=== PATIENT | male | born 1950 | race Asian ===

== ENCOUNTER 2022-03-30 07:16 | Inpatient (IN) | payer MEDICARE ==
--- NOTE | 2022-03-30 08:17 | Emergency Department Report ---
HPI - General Chief Complaint: Urogenital-Male Time Seen by Provider: 03/30/22 07:52 - HPI HPI: Room 24 Patient is a 71-year-old male presenting with a chief complaint of urinary retention. states the patient has not urinated since 3 PM yesterday. Patient states he does have the urge to urinate but is unable to. The states the patient has had bilateral lower extremity edema over the past week and a half. She states the patient's physician had some blood work drawn to check his kidney function last week but states there were no abnormalities noted. The patient was placed on Augmentin for UTI which she finished yesterday. ED Past Medical Hx - Past Medical History Hx Hypertension: Yes Hx Congestive Heart Failure: Yes Hx Diabetes: Yes Hx Psychiatric Treatment: Yes (DEPRESSION) Additional medical history: GOUT. ENLARGED PROSTATE. HYPOTHYROID. HLD - Surgical History Additional Surgical History: Left knee surgery, carpal tunnel surgery, penile surgery - Family History Family history: no significant - Social History Smoking Status: Former Smoker (None x3 years) Substance Use Type: Alcohol (Occasional) ED Review of Systems ROS: Stated complaint: URINARY RETENTION Other details as noted in HPI Constitutional: no symptoms reported Eyes: denies: eye pain ENT: denies: throat pain Cardiovascular: denies: chest pain Endocrine: no symptoms reported Gastrointestinal: denies: abdominal pain Genitourinary: other (Unable to urinate) Musculoskeletal: back pain (Chronic) Neurological: denies: headache Physical Exam - Physical Exam Vital Signs: Vital Signs 03/30/22 07:20 Temperature 97.9 F Pulse Rate 72 Respiratory 18 Rate Blood Pressure 122/62 [Left] O2 Sat by Pulse 98 Oximetry Physical Exam: GENERAL: The patient is well-developed well-nourished male lying on stretcher not appearing to be in acute distress. [] HEENT: Normocephalic. Atraumatic. Extraocular motions are intact. Patient has moist mucous membranes. NECK: Supple. Trachea midline CHEST/LUNGS: Clear to auscultation. There is no respiratory distress noted. HEART/CARDIOVASCULAR: Regular. There is no tachycardia. There is no gallop rub or murmur. ABDOMEN: Abdomen is soft, nontender. Patient has normal bowel sounds. There is no abdominal distention. SKIN: There is no rash. There is trace to 1+ bilateral lower extremity pitting edema. There is no diaphoresis. NEURO: The patient is awake, alert, and oriented. The patient is cooperative. The patient has no focal neurologic deficits. The patient has normal speech. GCS 15 MUSCULOSKELETAL: There is no evidence of acute injury. ED Course Vital Signs 03/30/22 07:20 Temperature 97.9 F Pulse Rate 72 Respiratory 18 Rate Blood Pressure 122/62 [Left] O2 Sat by Pulse 98 Oximetry - Consultations Consultation #1: 03/30/22 10:42 Patient's structures engineer called 03/30/22 11:21 Spoke with patient's structures engineer (Dr. Aby Chung [phone]) states patient's last creatinine was 2.2 on 03/21/2022 and this is his baseline ED Medical Decision Making - Lab Data Result diagrams: 03/30/22 08:15 03/30/22 08:15 Laboratory Tests 03/30/22 03/30/22 03/30/22 08:15 08:15 Unknown WBC 14.4 H RBC 3.60 L Hgb 10.5 L Hct 32.1 L MCV 89 MCH 29 MCHC 33 RDW 19.8 H Plt Count 167 Lymph % (Auto) 18.6 [place] % (Auto) 8.2 H Eos % (Auto) 3.0 Baso % (Auto) 0.5 Lymph # (Auto) 2.7 [place] # (Auto) 1.2 H Eos # (Auto) 0.4 Baso # (Auto) 0.1 Seg Neutrophils % 69.7 Seg Neutrophils # 10.1 H Sodium 139 Potassium 3.9 Chloride 98.1 Carbon Dioxide 27 Anion Gap 18 BUN 55 H Creatinine 4.2 H Estimated GFR 14 BUN/Creatinine Ratio 13 Glucose 132 H Calcium 7.9 L Total Bilirubin 0.60 AST 26 ALT 17 Alkaline Phosphatase 103 NT-Pro-B Natriuret Pep 1383 H Total Protein 6.1 L Albumin 3.9 Albumin/Globulin Ratio 1.8 Urine Color Yellow Urine Turbidity Slightly-cloudy Urine pH 5.0 Ur Specific [place] 1.014 Urine Protein 30 mg/dl Urine Glucose (UA) Neg Urine Ketones Neg Urine Blood Neg Urine Nitrite Neg Urine Bilirubin Neg Urine Urobilinogen 2.0 Ur Leukocyte Esterase Tr Urine WBC (Auto) 4.0 Urine RBC (Auto) 2.0 U Epithel Cells (Auto) 2.0 Amorphous Crystals Few Urine Mucus Few - Radiology Data Radiology results: report reviewed (Chest x-ray), image reviewed (Chest x-ray) interpreted by me: Chest x-ray-CHF. No pneumothorax [facility] [address] [place] [address] XRay Report Signed Patient: JACKY LYONS MR#: [id number] : 1950 Acct:[id number] Age/Sex: 71 / M ADM Date: 03/30/22 Loc: ED Attending Dr: Ordering Physician: ROJELIO LOCKE MD Date of Service: 03/30/22 Procedure(s): XR chest 1V ap Accession Number(s): [id number] cc: ROJELIO LOCKE MD Fluoro Time In Minutes: CHEST 1 VIEW 03/30/2022 8:35 AM INDICATION / CLINICAL INFORMATION: Fluid retention. COMPARISON: None available. FINDINGS: SUPPORT DEVICES: None. HEART / MEDIASTINUM: Cardiomegaly LUNGS / PLEURA: Bilateral pulmonary edema or infiltrates is present. Small bilateral pleural effusions. No pneumothorax. ADDITIONAL FINDINGS: No significant additional findings. IMPRESSION: 1. Probable CHF/volume overload. If fever is present, bilateral infiltrates could be considered. Signer Name: Dyllan Velasquez Jr, MD Signed: 03/30/2022 9:38 AM Workstation Name: [id number] Transcribed By: TTR Dictated By: DYLLAN VELASQUEZ JR, MD Electronically Authenticated By: DYLLAN VELASQUEZ JR, MD Signed Date/Time: 03/30/22937 DD/ 7 TD/TT: - Differential Diagnosis Urinary retention, acute renal failure, CHF, hypoalbuminemia Critical care attestation.: If time is entered above; I have spent that time in minutes in the direct care of this critically ill patient, excluding procedure time. ED Disposition Clinical Impression: CHF (congestive heart failure), Acute on chronic renal failure, Hypoxia, Urinary retention Disposition: ADMITTED INPATIENT Is pt being admited?: Yes Does the pt Need Aspirin: No Condition: Fair Referrals: PILLO JIANG MD [Primary Care Provider] - 3-5 Days Time of Disposition: 11:23 (Care transferred to hospitalist (Dr. Prakash))
[2022-03-30 08:47] LABS: Basophils # (Auto) 0.1 K/mm3 (0.0-0.1); Basophils % (Auto) 0.5 % (0.0-1.8); Eosinophils # (Auto) 0.4 K/mm3 (0.0-0.4); Hematocrit 32.1 % (35.5-45.6); Hemoglobin 10.5 gm/dl (11.8-15.2); Lymphocytes # (Auto) 2.7 K/mm3 (1.2-5.4); Lymphocytes % (Auto) 18.6 % (13.4-35.0); Mean Corpuscular HGB Conc 33 % (32-34); Mean Corpuscular Volume 89 fl (84-94); Monocytes # (Auto) 1.2 K/mm3 (0.0-0.8); Monocytes % (Auto) 8.2 % (0.0-7.3); Platelet Count 167 K/mm3 (140-440); Red Cell Distribution Width 19.8 % (13.2-15.2)
[2022-03-30 09:02] LABS: Albumin 3.9 g/dL (3.9-5); Calcium 7.9 mg/dL (8.4-10.2)
--- NOTE | 2022-03-30 09:43 | XRay Report ---
CHEST 1 VIEW 03/30/2022 8:35 AM INDICATION / CLINICAL INFORMATION: Fluid retention. COMPARISON: None available. FINDINGS: SUPPORT DEVICES: None. HEART / MEDIASTINUM: Cardiomegaly LUNGS / PLEURA: Bilateral pulmonary edema or infiltrates is present. Small bilateral pleural effusion s. No pneumothorax. ADDITIONAL FINDINGS: No significant additional findings. IMPRESSION: 1. Probable CHF/volume overload. If fever is present, bilateral infiltrates could be considered. Signer Name: Dyllan Velasquez Jr, MD Signed: 03/30/2022 9:38 AM Workstation Name: [id number]
[2022-03-30 10:01] LABS: Bilirubin,Urine NEG (Negative); Blood,Urine NEG (Negative); Color,Urine Yellow (Yellow)
[2022-03-30 10:25] LABS: Amorphous Crystals,Urine Few; Mucus,Urine FEW /HPF
--- NOTE | 2022-03-30 11:55 | History and Physical Report ---
History of Present Illness Chief complaint: He is weak and not moving around as much History of present illness: 71 YO Male with HTN, DM, Obesity Hypoventilation Syndrome, Vascular Dementia, Cerebral Atherosclerosis, BPH, Chronic Pain Syndrome, OA, HLD presents ED for evaluation. Patient is confused and lethargic the time of evaluation is provide history. Patient history provided by EMS staff, ED staff, as well as the patient was at bedside during exam and interview. As per the patient experienced increased weakness over the past 3 weeks with concomitant worsening lower extremity edema, decreased exercise tolerance, orthopnea, paroxysmal nocturnal dyspnea, dyspnea on exertion, dyspnea at rest, as well as subjective weight gain over the past 3 weeks. Patient was found to have increased lethargy today. EMS notified and upon arrival the patient was found to be in distress and subsequent transported to [facility] for further care and evaluation of the aforementioned symptoms. The patient was seen and evaluated in the emergency department. All lab and imaging studies reviewed. The patient was found to have a pulse oximetry of 89% on room air which is consistent with acute hypoxemic respiratory failure. The patient was placed on supplemental oxygen with mild improvement in symptoms and was subsequently placed on noninvasive positive pressure ventilation. Patient also found to have bilateral pneumonia complicated by sepsis, MATILDA with ATN, cardiorenal syndrome, as well as clinical symptoms consistent with new onset CHF decompensation. Patient admitted to IMCU due to increased risk of worsening symptoms and for medical stabilization. Cardiology team consulted in ED. nephrology team consulted in ED. Patient is lethargic with diminished cognition but has a positive gag reflex and is able to protect his airway at the time my evaluation. No prior admission for review. No medication listed at time of admission for reconciliation. Advanced care planning conducted in ED. Past History Past Medical History: arthritis, diabetes, hypertension, hyperlipidemia, other (See HPI) Past Surgical History: Other (Left knee, carpal tunnel, penile surgery) Social history: , lives with family. denies: smoking, prescription drug abuse Family history: diabetes, hypertension Medications and Allergies Allergies Allergy/AdvReac Type Severity Reaction Status Date / Time No Known Allergies Allergy Verified 03/30/22 07:22 Home Medications Medication Instructions Recorded Confirmed Last Taken Type AtorvaSTATin 03/30/22 Unknown History AtorvaSTATin [Lipitor] 10 mg PO QHS 03/30/22 03/30/22 Unknown History Dulaglutide [Trulicity] QWEEK 03/30/22 Unknown History Finasteride 5 mg PO DAILY 03/30/22 03/30/22 Unknown History Furosemide 20 mg PO DAILY 03/30/22 03/30/22 Unknown History Insulin Aspart (Nf) [NovoLOG 100 03/30/22 Unknown History UNITS/ML VIAL] Levothyroxine 0.125 mg PO BID 03/30/22 03/30/22 Unknown History Lyrica 200 mg PO BID 03/30/22 03/30/22 Unknown History Potassium 03/30/22 Unknown History Potassium Chloride [K-Dur] 20 meq PO BID 03/30/22 03/30/22 Unknown History Tamsulosin 0.4 mg PO DAILY 03/30/22 03/30/22 Unknown History Tresiba 03/30/22 Unknown History Trimethoprim 100 mg PO HS 03/30/22 03/30/22 Unknown History Trulicity 03/30/22 Unknown History allopurinoL 100 mg PO BID 03/30/22 03/30/22 Unknown History amLODIPine 5 mg PO DAILY 03/30/22 03/30/22 Unknown History carvediloL 03/30/22 Unknown History carvediloL [Coreg] 6.25 mg PO BID 03/30/22 03/30/22 Unknown History cephALEXin 250 mg PO DAILY 03/30/22 03/30/22 Unknown History metFORMIN 500 mg PO BID 03/30/22 03/30/22 Unknown History Review of Systems Constitutional: weight loss, fever, chills, weakness, malaise, no weight gain Ears, nose, mouth and throat: no ear pain, no ear discharge, no tinnitis, no decreased hearing, no nasal congestion Cardiovascular: orthopnea, shortness of breath, dyspnea on exertion, paroxysmal nocturnal dyspnea, high blood pressure, leg edema, decreased exercise tolerance, no chest pain Respiratory: no cough, no cough with sputum Gastrointestinal: no abdominal pain, no nausea, no vomiting Genitourinary Male: no hematuria, no flank pain, no discharge, no urinary frequency, no urinary hesitancy Rectal: no pain, no incontinence, no bleeding Musculoskeletal: no neck stiffness, no arm numbness/tingling, no low back pain, no shooting leg pain Integumentary: no rash, no pruritis, no wounds, no jaundice Neurological: no head injury, no transient paralysis, no weakness, no numbness, no tingling, no syncope Psychiatric: no anxiety, no memory loss, no sleep disturbances, no insomnia, no hypersomnia, no change in appetite, no suicidal ideation Endocrine: no cold intolerance, no polyphagia, no polydipsia, no nocturia, no excessive sweating, no flushing Hematologic/Lymphatic: no easy bruising, no easy bleeding Allergic/Immunologic: no urticaria, no allergic rhinitis, no wheezing Exam - Constitutional Vitals: Temp Pulse Resp BP Pulse Ox 97.9 F 72 18 122/62 98 03/30/22 07:20 03/30/22 07:20 03/30/22 07:20 03/30/22 07:20 03/30/22 07:20 General appearance: Present: mild distress, obese - EENT Eyes: Present: PERRL ENT: hearing intact, clear oral mucosa, hearing decreased - Neck Neck: Present: supple, normal ROM, masses or JVD - Respiratory Respiratory effort: labored Respiratory: bilateral: diminished - Cardiovascular Heart Sounds: Present: S1 & S2. Absent: rub, click - Extremities Extremity abnormal: edema Peripheral Pulses: within normal limits - Abdominal General gastrointestinal: Present: soft, non-tender, non-distended, normal bowel sounds Male genitourinary: Present: normal - Integumentary Integumentary: Present: clear, warm, dry - Musculoskeletal Musculoskeletal: generalized weakness - Psychiatric Psychiatric: no appropriate mood/affect, no intact judgment & insight, no memory intact - Neurologic Neurologic: CNII-XII intact, no focal deficits, moves all extremities, no gait normal Results - Labs CBC & Chem 7: 03/30/22 08:15 03/30/22 08:15 Labs: Abnormal lab results 03/30/22 03/30/22 Range/Units 08:15 08:15 WBC 14.4 H (4.5-11.0) K/mm3 RBC 3.60 L (3.65-5.03) M/mm3 Hgb 10.5 L (11.8-15.2) gm/dl Hct 32.1 L (35.5-45.6) % RDW 19.8 H (13.2-15.2) % [place] % (Auto) 8.2 H (0.0-7.3) % [place] # (Auto) 1.2 H (0.0-0.8) K/mm3 Seg Neutrophils # 10.1 H (1.8-7.7) K/mm3 BUN 55 H (9-20) mg/dL Creatinine 4.2 H (0.8-1.3) mg/dL Glucose 132 H (75-100) mg/dL Calcium 7.9 L (8.4-10.2) mg/dL NT-Pro-B Natriuret Pep 1383 H (0-900) pg/mL Total Protein 6.1 L (6.3-8.2) g/dL Assessment and Plan - Patient Problems (1) Sepsis Current Visit: Yes Status: Acute Qualifiers: Severe sepsis acute organ dysfunction type: acute respiratory failure Plan to address problem: Sepsis protocol: Strict I's/O, monitoring output every shift, daily weight, monitor fluid balance, IV fluid resuscitation therapy as clinically indicated, IV antibiotic therapy, chest x-ray, urinalysis, serial lactic acid level, maintain mean arterial pressure greater than equal 65, blood culture, (2) Bilateral pneumonia Current Visit: Yes Status: Acute Plan to address problem: Pneumonia protocol: Chest x-ray, supplemental oxygen, pulse oximetry, IV antibiotic therapy, blood culture. Pulmonary toilet, (3) Acute hypoxemic respiratory failure Current Visit: Yes Status: Acute Plan to address problem: Chest x-ray, supplemental oxygen, pulse oximetry, nebulizer therapy, pulmonary toilet, noninvasive positive pressure ventilation as clinically indicated, arterial blood gas. (4) New onset of congestive heart failure Current Visit: Yes Status: Acute Plan to address problem: Strict I's/O, Q shift, daily weight, afterload reduction, blood pressure control, diuresis, cardiology team consulted, thyroid panel, magnesium level, echocardiogram ordered and pending at time of admission. (5) Acute kidney injury (MATILDA) with acute tubular necrosis (ATN) Current Visit: Yes Status: Acute Plan to address problem: BMP, monitor fluid balance, repeat BMP in a.m., urine electrolytes, renal ultrasound, nephrology team consulted. (6) Cardiorenal syndrome Current Visit: Yes Status: Acute Qualifiers: Heart failure presence: with heart failure Plan to address problem: Nephrology team consulted, monitor fluid balance, BMP, repeat BMP in a.m. to monitor serum creatinine as well as GFR, urine electrolytes. (7) Obesity hypoventilation syndrome Current Visit: Yes Status: Acute Plan to address problem: Balanced diet, increase physical activity discharge, outpatient pulmonary follow-up for sleep study. (8) Vascular dementia Current Visit: Yes Status: Acute Qualifiers: Dementia behavioral disturbance: without behavioral disturbance Qualified Code(s): F01.50 - Vascular dementia without behavioral disturbance Plan to address problem: Verbal prompting, verbal redirection, benzodiazepine therapy as clinically indicated. (9) Cerebral atherosclerosis Current Visit: Yes Status: Acute Plan to address problem: Risk factor reduction, supportive care, antiplatelet therapy as clinically indicated. (10) DVT prophylaxis Current Visit: Yes Status: Acute Plan to address problem: SCD to bilateral lower extremities while in bed (11) Advance care planning Current Visit: Yes Status: Acute Plan to address problem: Disease education conducted, care plan discussed, diagnoses discussed, prognosis discussed, patient is full code. Patient acknowledges understanding agree with care plan. (12) Preventative health care Current Visit: Yes Status: Acute Plan to address problem: Patient and counseled regarding home safety precautions, outpatient follow- up with primary care physician for all age and risk factor appropriate screening test. Patient poor prognosis discussed. Patient is high risk for deterioration. +30 minutes.
[2022-03-30] MEDS ORDERED: oxyCODONE /ACETAMINOPHEN 5-325MG TAB PO PRN (13:39)
[2022-03-30] MEDS ORDERED: ALBUTEROL 2.5 MG/3 ML NEBU IH PRN (13:39)
[2022-03-30] MEDS ORDERED: HYDROmorphone 0.5 MG/0.5 ML INJ IV PRN ×3 (13:39→13:41)
[2022-03-30] MEDS ORDERED: ACETAMINOPHEN 325 MG TAB PO PRN ×2 (13:39→13:41)
[2022-03-30] MEDS ORDERED: NITROGLYCERIN 0.4 MG TAB SUBL SL PRN (13:43)
[2022-03-30 14:49] LABS: Free T4 (Free Thyroxine) 0.94 ng/dL (0.76-1.46)
--- NOTE | 2022-03-30 16:53 | Cat Scan Report ---
CT HEAD WITHOUT CONTRAST INDICATION / CLINICAL INFORMATION: CONFUSION. TECHNIQUE: All CT scans at this location are performed using CT dose reduction for ALARA by means of automated e xposure control. COMPARISON: None available. FINDINGS: Limitations: Patient motion artifact and difficulties in patient positioning degrades image quality. These are limiting factors on this examination. HEMORRHAGE: No evidence of intracranial hemorrhage or extra-axial fluid collection. EXTRA-AXIAL SPACES: Cortical sulci, sylvian fissures and basilar cisterns are within normal limits fo r size given the patient's age of 71 years. VENTRICULAR SYSTEM: The third and lateral ventricles are of slightly larger than expected for the siz e of the cortical sulci but within normal limits for the patient's age of 71 years. CEREBRAL PARENCHYMA: Bilaterally symmetrical physiological calcifications are seen in a gangliocapsul ar distribution. Periventricular white matter lucencies noted consistent with microvascular ischemic change. MIDLINE SHIFT OR HERNIATION: There is no mass effect. CEREBELLUM / BRAINSTEM: Brainstem and cerebellum have an unremarkable appearance. MIDLINE STRUCTURES:No abnormalities of the pituitary gland or pineal region are identified. INTRACRANIAL VESSELS: Calcified atherosclerotic plaque is seen along the course the cavernous segment s of both internal carotid arteries. ORBITS: Status post bilateral cataract surgery and scleral banding. Orbits have an otherwise unremark able appearance. SOFT TISSUES of HEAD: No significant abnormality. CALVARIUM: Evaluation of bone windows reveals no abnormalities. PARANASAL SINUSES / MASTOID AIR CELLS: Visualized portions of the paranasal sinuses are free from inf lammatory mucosal disease. Mastoid air cells are normally pneumatized. IMPRESSION: 1. No acute intracranial abnormality. 2. Head CT without contrast is within normal limits for the patient's age of 71 years. 2. Study is limited by difficulties in patient positioning and patient motion artifact. Signer Name: Juan Haynes MD Signed: 03/30/2022 4:49 PM Workstation Name: [id number]
--- NOTE | 2022-03-30 17:14 | Consultation ---
History of Present Illness Consult date: 03/30/22 Requesting physician: ANATOLIY VAUGHN Consult reason: congestive heart failure History of present illness: Patient is 71-year-old male with past medical history of CKD, diabetes, hypertension, hyperlipidemia, BPH, chronic back pain presented to the ED with several complaints such as altered mental status, bilateral lower extremity edema, and urinary retention x1 day. History is taken from patient's who is at bedside due to patient's AMS. 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 Patient's reports that patient had labs drawn however that she is unsure of what the results of the labs were. She reports that yesterday patient developed altered mental status and did not appear to be himself. She reports that patient has not urinated since yesterday at 3 PM until patient had Madrigal catheter placed in the ED today. She does report patient has history of frequent urinary and bladder problems. Patient's labs showed patient to have elevated creatinine of 4.2, elevated BNP, and CXR sh owed volume overload. Patient is previously unknown to our practice. Cardiology is consulted for CHF. Past History Past Medical History: diabetes, hypertension, hyperlipidemia, other (ckd) Past Surgical History: Other (shoulder surgery, retina surgery) Social history: Family history: CAD, diabetes, hypertension Medications and Allergies Allergies Allergy/AdvReac Type Severity Reaction Status Date / Time No Known Allergies Allergy Verified 03/30/22 07:22 Home Medications Medication Instructions Recorded Confirmed Last Taken Type AtorvaSTATin 03/30/22 Unknown History AtorvaSTATin [Lipitor] 10 mg PO QHS 03/30/22 03/30/22 Unknown History Dulaglutide [Trulicity] QWEEK 03/30/22 Unknown History Finasteride 5 mg PO DAILY 03/30/22 03/30/22 Unknown History Furosemide 20 mg PO DAILY 03/30/22 03/30/22 Unknown History Insulin Aspart (Nf) [NovoLOG 100 03/30/22 Unknown History UNITS/ML VIAL] Levothyroxine 0.125 mg PO BID 03/30/22 03/30/22 Unknown History Lyrica 200 mg PO BID 03/30/22 03/30/22 Unknown History Potassium 03/30/22 Unknown History Potassium Chloride [K-Dur] 20 meq PO BID 03/30/22 03/30/22 Unknown History Tamsulosin 0.4 mg PO DAILY 03/30/22 03/30/22 Unknown History Tresiba 03/30/22 Unknown History Trimethoprim 100 mg PO HS 03/30/22 03/30/22 Unknown History Trulicity 03/30/22 Unknown History allopurinoL 100 mg PO BID 03/30/22 03/30/22 Unknown History amLODIPine 5 mg PO DAILY 03/30/22 03/30/22 Unknown History carvediloL 03/30/22 Unknown History carvediloL [Coreg] 6.25 mg PO BID 03/30/22 03/30/22 Unknown History cephALEXin 250 mg PO DAILY 03/30/22 03/30/22 Unknown History metFORMIN 500 mg PO BID 03/30/22 03/30/22 Unknown History Active Meds: Active Medications Acetaminophen (Acetaminophen 325 Mg Tab) 650 mg PO Q6H PRN PRN Reason: Pain, Mild (1-3) Albuterol (Albuterol 2.5 Mg/3 Ml Nebu) 2.5 mg IH Q3HRT PRN PRN Reason: Shortness Of Breath Furosemide (Furosemide 40 Mg/4 Ml Inj) 40 mg IV 0600,1800 [facility] Hydromorphone HCl (Hydromorphone 0.5 Mg/0.5 Ml Inj) 0.25 mg IV Q4H PRN PRN Reason: Pain, Moderate (4-6) Hydromorphone HCl (Hydromorphone 0.5 Mg/0.5 Ml Inj) 0.5 mg IV Q4H PRN PRN Reason: Pain , Severe (7-10) Levofloxacin/Dextrose (Levaquin 750mg/150ml) 750 mg in 150 mls @ 100 mls/hr IV Q48H [facility]; Protocol Nitroglycerin (Nitroglycerin 0.4 Mg Tab Subl) 0.4 mg SL .Q5MIN PRN PRN Reason: Chest Pain Oxycodone/Acetaminophen (Oxycodone /Acetaminophen 5-325mg Tab) 1 tab PO Q6H PRN PRN Reason: Pain, Moderate (4-6) Sodium Chloride (Sodium Chloride 0.9% 10 Ml Flush Syringe) 10 ml IV BID [facility] Sodium Chloride (Sodium Chloride 0.9% 10 Ml Flush Syringe) 10 ml IV PRN PRN PRN Reason: LINE FLUSH Review of Systems ROS unobtainable: due to mental status Physical Examination Vital Signs Temp Pulse Resp BP Pulse Ox 97.9 F 72 18 122/62 98 03/30/22 07:20 03/30/22 07:20 03/30/22 07:20 03/30/22 07:20 03/30/22 07:20 General appearance: other (AMS) HEENT: Positive: Mucus Membranes Moist Cardiac: Positive: Reg Rate and Rhythm Lungs: Positive: Decreased Breath Sounds Neuro: Positive: Grossly Intact Abdomen: Positive: Soft Skin: Negative: Rash, Suspicious Lesions, Ulceration Extremities: Present: upper extr. pulses, +2 Edema Results 03/30/22 08:15 03/30/22 08:15 Cardiac Enzymes 03/30/22 Range/Units 08:15 AST 26 (5-40) units/L CBC 03/30/22 Range/Units 08:15 WBC 14.4 H (4.5-11.0) K/mm3 RBC 3.60 L (3.65-5.03) M/mm3 Hgb 10.5 L (11.8-15.2) gm/dl Hct 32.1 L (35.5-45.6) % Plt Count 167 (140-440) K/mm3 Lymph # (Auto) 2.7 (1.2-5.4) K/mm3 [place] # (Auto) 1.2 H (0.0-0.8) K/mm3 Eos # (Auto) 0.4 (0.0-0.4) K/mm3 Baso # (Auto) 0.1 (0.0-0.1) K/mm3 Comprehensive Metabolic Panel 03/30/22 Range/Units 08:15 Sodium 139 (137-145) mmol/L Potassium 3.9 (3.6-5.0) mmol/L Chloride 98.1 (98-107) mmol/L Carbon Dioxide 27 (22-30) mmol/L BUN 55 H (9-20) mg/dL Creatinine 4.2 H (0.8-1.3) mg/dL Glucose 132 H (75-100) mg/dL Calcium 7.9 L (8.4-10.2) mg/dL AST 26 (5-40) units/L ALT 17 (7-56) units/L Alkaline Phosphatase 103 (35-129) units/L Total Protein 6.1 L (6.3-8.2) g/dL Albumin 3.9 (3.9-5) g/dL - Imaging and Cardiology Echo: pending EKG: pending Assessment and Plan Patient is 71-year-old male with past medical history of CKD, diabetes, hypertension, hyperlipidemia, BPH, chronic back pain presented to the ED with several complaints such as altered mental status, bilateral lower extremity edema, and urinary retention x1 day. AMS Acute respiratory failure MATILDA on CKD?-Nephrology following CHF Volume overload Hypertension Diabetes Hyperlipidemia BPH Obesity Chronic back pain Plan: No EKG in chart. EKG pending Telemetry reviewed patient appears to be sinus rhythm 70s- 80s BNP noted to be elevated, CXR shows volume overload, patient is hypoxic, and patient has bilateral lower extremity edema Will increase to Lasix 40 mg IV twice daily for diuresis. If okay with nephrology Strict I&O's, daily weights, and repeat BMP in the a.m. with close monitoring of renal function Will hold beta-blockers as patient is normotensive. Continue to monitor patient No JHONATAN or ARB due to renal function Echo pending Patient seen in conjunction with Dr. Moody who agrees with assessment and plan of care - Patient Problems (1) HTN (hypertension) Current Visit: Yes Status: Acute (2) Obesity Current Visit: Yes Status: Acute (3) Acute respiratory failure Current Visit: Yes Status: Acute (4) Acute on chronic renal failure Current Visit: Yes Status: Acute (5) CHF (congestive heart failure) Current Visit: Yes Status: Acute (6) Hypoxia Current Visit: Yes Status: Acute (7) Urinary retention Current Visit: Yes Status: Acute
[2022-03-30] MEDS: FUROSEMIDE 40 MG/4 ML INJ IV SCH (17:34)
[2022-03-30 17:51] LABS: ABG HCO3 34.2 mmol/L (20.0-26.0); ABG Methemoglobin 0.4 % (0.0-1.5); ABG Oxygen Saturation 98.9 % (95.0-99.0); ABG PCO2 107.9 mm Hg; ABG PO2 85.2 mm Hg (80.0-90.0)
[2022-03-30] MEDS ORDERED: FUROSEMIDE 20 MG/2 ML INJ IV SCH ×2 (18:00)
[2022-03-30 18:42] LABS: ABG PH 7.118 pH Units (7.350-7.450)
--- NOTE | 2022-03-30 19:10 | Ultrasound Report ---
ULTRASOUND RENAL INDICATION / CLINICAL INFORMATION: natalia. COMPARISON: None available. FINDINGS: RIGHT KIDNEY: Length = 11.8 cm. - Echogenicity: Normal. - Parenchymal Thickness: Normal. - Hydronephrosis: None. - Cyst / Mass: None. - Stones: None seen. LEFT KIDNEY: Length = 10.5 cm. - Echogenicity: Normal. - Parenchymal Thickness: Normal. - Hydronephrosis: None. - Cyst / Mass: None. - Stones: None seen. URINARY BLADDER: No significant abnormality. FREE FLUID: None. ADDITIONAL FINDINGS: None. IMPRESSION: 1. No significant abnormality. Signer Name: Yogesh Norris MD Signed: 03/30/2022 7:06 PM Workstation Name: [id number]
[2022-03-30 20:03] LABS: ABG Base Excess 0.1 mmol/L (-2.0-3.0); ABG HCO3 32.2 mmol/L (20.0-26.0); ABG Methemoglobin 0.5 % (0.0-1.5); ABG Oxygen Saturation 95.7 % (95.0-99.0); ABG PCO2 106.4 mm Hg; ABG PO2 89.8 mm Hg (80.0-90.0)
[2022-03-30 20:10] LABS: ABG PH 7.099 pH Units (7.350-7.450)
[2022-03-31] MEDS ORDERED: SODIUM BICARB 8.4% 50 MEQ/50 ML SYRINGE IV ONE (00:24)
[2022-03-31 01:10] LABS: Creatinine,Urine 105.1 mg/dL (0.1-20.0)
[2022-03-31 04:10] LABS: Basophils % (Auto) 0.4 % (0.0-1.8); Eosinophils # (Auto) 0.1 K/mm3 (0.0-0.4); Eosinophils % (Auto) 0.6 % (0.0-4.3); Hematocrit 36.9 % (35.5-45.6); Lymphocytes # (Auto) 1.3 K/mm3 (1.2-5.4); Lymphocytes % (Auto) 11.5 % (13.4-35.0); Mean Corpuscular HGB Conc 33 % (32-34); Mean Corpuscular Volume 89 fl (84-94); Monocytes # (Auto) 1.1 K/mm3 (0.0-0.8); Monocytes % (Auto) 10.4 % (0.0-7.3); Platelet Count 132 K/mm3 (140-440); Red Blood Count 4.14 M/mm3 (3.65-5.03); Red Cell Distribution Width 19.7 % (13.2-15.2)
[2022-03-31 04:27] LABS: Albumin 4.1 g/dL (3.9-5); Calcium 7.8 mg/dL (8.4-10.2)
[2022-03-31] MEDS: FUROSEMIDE 40 MG/4 ML INJ IV SCH ×2 (06:50→17:30)
[2022-03-31 06:55] LABS: ABG Base Excess 1.5 mmol/L (-2.0-3.0); ABG HCO3 28.6 mmol/L (20.0-26.0); ABG Methemoglobin 0.6 % (0.0-1.5); ABG Oxygen Saturation 97.1 % (95.0-99.0); ABG PCO2 57.5 mm Hg; ABG PH 7.315 pH Units (7.350-7.450); ABG PO2 80.1 mm Hg (80.0-90.0)
--- NOTE | 2022-03-31 08:56 | Consultation ---
History of Present Illness - Reason for Consult Consult date: 03/31/22 acute renal failure, chronic renal failure - History of Present Illness The patient is a 71 YO male with history of HTN, DM, HLD, Morbid Obesity, Dementia, BPH, Chronic Pain Syndrome and OA who presented to [facility] ED 03/30/22 w ith generalized weakness over the past 3 weeks. Patient was not able to provide any hsitory and there was no family member at the bedside. Per the patient experienced increased sob, worsening lower extremity edema, decreased exercise tolerance, orthopnea, paroxysmal nocturnal dyspnea, dyspnea on exertion, dyspnea at rest, as well as subjective weight gain over the past 3 weeks. Patient was found to have increased lethargy. His pulse oximetry was low on room air in the ED. The patient was placed on supplemental oxygen and was on BIPAP at the time of eval. Labs notable for Creat 4.7 and BUN 66. Nephrology consulted for further evaluation and treatment of MATILDA. Past History Past Medical History: arthritis, diabetes, hypertension, hyperlipidemia, other (See HPI) Past Surgical History: Other (Left knee, carpal tunnel, penile surgery) Social history: , lives with family. denies: smoking, prescription drug abuse Family history: diabetes, hypertension Medications and Allergies Allergies Allergy/AdvReac Type Severity Reaction Status Date / Time No Known Allergies Allergy Verified 03/30/22 07:22 Home Medications Medication Instructions Recorded Confirmed Last Taken Type AtorvaSTATin 03/30/22 Unknown History AtorvaSTATin [Lipitor] 10 mg PO QHS 03/30/22 03/30/22 Unknown History Dulaglutide [Trulicity] QWEEK 03/30/22 Unknown History Finasteride 5 mg PO DAILY 03/30/22 03/30/22 Unknown History Furosemide 20 mg PO DAILY 03/30/22 03/30/22 Unknown History Insulin Aspart (Nf) [NovoLOG 100 03/30/22 Unknown History UNITS/ML VIAL] Levothyroxine 0.125 mg PO BID 03/30/22 03/30/22 Unknown History Lyrica 200 mg PO BID 03/30/22 03/30/22 Unknown History Potassium 03/30/22 Unknown History Potassium Chloride [K-Dur] 20 meq PO BID 03/30/22 03/30/22 Unknown History Tamsulosin 0.4 mg PO DAILY 03/30/22 03/30/22 Unknown History Tresiba 03/30/22 Unknown History Trimethoprim 100 mg PO HS 03/30/22 03/30/22 Unknown History Trulicity 03/30/22 Unknown History allopurinoL 100 mg PO BID 03/30/22 03/30/22 Unknown History amLODIPine 5 mg PO DAILY 03/30/22 03/30/22 Unknown History carvediloL 03/30/22 Unknown History carvediloL [Coreg] 6.25 mg PO BID 03/30/22 03/30/22 Unknown History cephALEXin 250 mg PO DAILY 03/30/22 03/30/22 Unknown History metFORMIN 500 mg PO BID 03/30/22 03/30/22 Unknown History Active Meds: Active Medications Acetaminophen (Acetaminophen 325 Mg Tab) 650 mg PO Q6H PRN PRN Reason: Pain, Mild (1-3) Albuterol (Albuterol 2.5 Mg/3 Ml Nebu) 2.5 mg IH Q3HRT PRN PRN Reason: Shortness Of Breath Furosemide (Furosemide 40 Mg/4 Ml Inj) 40 mg IV 0600,1800 [facility] Last Admin: 03/31/22 06:50 Dose: 40 mg Hydromorphone HCl (Hydromorphone 0.5 Mg/0.5 Ml Inj) 0.25 mg IV Q4H PRN PRN Reason: Pain, Moderate (4-6) Hydromorphone HCl (Hydromorphone 0.5 Mg/0.5 Ml Inj) 0.5 mg IV Q4H PRN PRN Reason: Pain , Severe (7-10) Levofloxacin/Dextrose (Levaquin 750mg/150ml) 750 mg in 150 mls @ 100 mls/hr IV Q48H [facility]; Protocol Last Admin: 03/30/22 16:45 Dose: 100 mls/hr Nitroglycerin (Nitroglycerin 0.4 Mg Tab Subl) 0.4 mg SL .Q5MIN PRN PRN Reason: Chest Pain Oxycodone/Acetaminophen (Oxycodone /Acetaminophen 5-325mg Tab) 1 tab PO Q6H PRN PRN Reason: Pain, Moderate (4-6) Sodium Chloride (Sodium Chloride 0.9% 10 Ml Flush Syringe) 10 ml IV BID [facility] Last Admin: 03/30/22 21:42 Dose: 10 ml Sodium Chloride (Sodium Chloride 0.9% 10 Ml Flush Syringe) 10 ml IV PRN PRN PRN Reason: LINE FLUSH Review of Systems ROS unobtainable: due to mental status Exam - Vital Signs Vital signs: Vital Signs Temp Pulse Resp BP Pulse Ox 97.9 F 72 18 122/62 98 03/30/22 07:20 03/30/22 07:20 03/30/22 07:20 03/30/22 07:20 03/30/22 07:20 Results - Lab Results 03/31/22 03:34 03/31/22 03:34 Most recent lab results ABG pH 7.315 pH Units (7.350-7.450) L 03/31/22 05:57 ABG pCO2 57.5 mm Hg 03/31/22 05:57 ABG pO2 80.1 mm Hg (80.0-90.0) 03/31/22 05:57 ABG HCO3 28.6 mmol/L (20.0-26.0) H 03/31/22 05:57 ABG O2 Saturation 97.1 % (95.0-99.0) 03/31/22 05:57 Calcium 7.8 mg/dL (8.4-10.2) L 03/31/22 03:34 Magnesium 2.10 mg/dL (1.7-2.3) 03/30/22 14:11 Urine Creatinine 105.1 mg/dL (0.1-20.0) H 03/31/22 00:40 Urine Sodium 28 mmol/L 03/31/22 00:40 Assessment and Plan 1. Acute kidney injury: Suspect MATILDA in the setting of Decompensated CHF. Renal US negative for hydro/stone. Baseline renal function unknown. Suspect background CKD. Monitor renal function. Creatinine level increasing. Avoid nephrotoxic agents. Meds dosage based on GFR. 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 2. FEN: Volume overload, on IV Lasix, monitor. Replete lytes as needed. Monitor lytes and volume status. 3. Acute mixed Resp failure, POA: On BIPAP. About to be intubated per Pulmonary. Monitor. 4. Suspected decompensated CHF: Echo pending. Followed by Cards. 5. Acute Encephalopathy, POA: Monitor. 6. DM: 7. Hypertension: 8. BPH. Subjective: Patient was seen and examined at the bedside. Examination: General appearance: well-developed, obese, appears stated age, on BIPAP HEENT: atraumatic, no icterus Neck: trachea midline Respiratory: diminished breath sounds heard Heart: S1S2, regular, no murmur Abdomen: soft, obese, bowel sounds heard, NT Integumentary: no obvious rash Neurologic: obtunded Ext: trace Ext and dependent edema : Madrigal catheter
--- NOTE | 2022-03-31 10:33 | Consultation ---
History of Present Illness Consult date: 03/31/22 Requesting physician: DARWIN EPSTEIN Reason for consult: hypoxemia, other (hypercapnic respiratory failure) History of present illness: 71 y/o obese male admitted last night with altered mental status. Found to be hypercapnic and in renal failure. CXR consistent with volume overload with pulmonary edema, bilateral pleural effusions and cardiomegaly. Placed on bipap. This AM per staff, patient awake and alert, following commands. Wore bipap all night last night and was singing this am. On my exam this morning of the consult, patient will withdraw from pain with sternal rub. He will not follow commands. Currently more obtunded than lethargic and has jerking likely from CO2 narcosis. Repeat ABG this am showed CO2 down to the 50''s with a pH of 7.3. No family at bedside. Remainder is negative. Past History Past Medical History: arthritis, diabetes, hypertension, hyperlipidemia, other (See HPI) Past Surgical History: Other (Left knee, carpal tunnel, penile surgery) Social history: , lives with family. denies: smoking, prescription drug abuse Family history: diabetes, hypertension Medications and Allergies Allergies Allergy/AdvReac Type Severity Reaction Status Date / Time No Known Allergies Allergy Verified 03/30/22 07:22 Home Medications Medication Instructions Recorded Confirmed Last Taken Type AtorvaSTATin 03/30/22 Unknown History AtorvaSTATin [Lipitor] 10 mg PO QHS 03/30/22 03/30/22 Unknown History Dulaglutide [Trulicity] QWEEK 03/30/22 Unknown History Finasteride 5 mg PO DAILY 03/30/22 03/30/22 Unknown History Furosemide 20 mg PO DAILY 03/30/22 03/30/22 Unknown History Insulin Aspart (Nf) [NovoLOG 100 03/30/22 Unknown History UNITS/ML VIAL] Levothyroxine 0.125 mg PO BID 03/30/22 03/30/22 Unknown History Lyrica 200 mg PO BID 03/30/22 03/30/22 Unknown History Potassium 03/30/22 Unknown History Potassium Chloride [K-Dur] 20 meq PO BID 03/30/22 03/30/22 Unknown History Tamsulosin 0.4 mg PO DAILY 03/30/22 03/30/22 Unknown History Tresiba 03/30/22 Unknown History Trimethoprim 100 mg PO HS 03/30/22 03/30/22 Unknown History Trulicity 03/30/22 Unknown History allopurinoL 100 mg PO BID 03/30/22 03/30/22 Unknown History amLODIPine 5 mg PO DAILY 03/30/22 03/30/22 Unknown History carvediloL 03/30/22 Unknown History carvediloL [Coreg] 6.25 mg PO BID 03/30/22 03/30/22 Unknown History cephALEXin 250 mg PO DAILY 03/30/22 03/30/22 Unknown History metFORMIN 500 mg PO BID 03/30/22 03/30/22 Unknown History Active Meds: Active Medications Acetaminophen (Acetaminophen 325 Mg Tab) 650 mg PO Q6H PRN PRN Reason: Pain, Mild (1-3) Albuterol (Albuterol 2.5 Mg/3 Ml Nebu) 2.5 mg IH Q3HRT PRN PRN Reason: Shortness Of Breath Furosemide (Furosemide 40 Mg/4 Ml Inj) 40 mg IV 0600,1800 [facility] Last Admin: 03/31/22 06:50 Dose: 40 mg Hydromorphone HCl (Hydromorphone 0.5 Mg/0.5 Ml Inj) 0.25 mg IV Q4H PRN PRN Reason: Pain, Moderate (4-6) Hydromorphone HCl (Hydromorphone 0.5 Mg/0.5 Ml Inj) 0.5 mg IV Q4H PRN PRN Reason: Pain , Severe (7-10) Levofloxacin/Dextrose (Levaquin 750mg/150ml) 750 mg in 150 mls @ 100 mls/hr IV Q48H [facility]; Protocol Last Admin: 03/30/22 16:45 Dose: 100 mls/hr Nitroglycerin (Nitroglycerin 0.4 Mg Tab Subl) 0.4 mg SL .Q5MIN PRN PRN Reason: Chest Pain Oxycodone/Acetaminophen (Oxycodone /Acetaminophen 5-325mg Tab) 1 tab PO Q6H PRN PRN Reason: Pain, Moderate (4-6) Sodium Chloride (Sodium Chloride 0.9% 10 Ml Flush Syringe) 10 ml IV BID [facility] Last Admin: 03/31/22 09:02 Dose: 10 ml Sodium Chloride (Sodium Chloride 0.9% 10 Ml Flush Syringe) 10 ml IV PRN PRN PRN Reason: LINE FLUSH Review of Systems ROS unobtainable: due to mental status Physical Examination Vital signs: Vital Signs Temp Pulse Resp BP Pulse Ox 97.9 F 72 18 122/62 98 03/30/22 07:20 03/30/22 07:20 03/30/22 07:20 03/30/22 07:20 03/30/22 07:20 General appearance: appears uncomfortable, other (obtunded) Eyes: non-icteric ENT: other (full face mask presently on) Neck: supple Effort: normal Ascultation: Bilateral: rales Percussion: Bilateral: not dull Cardiovascular: regular rate and rhythm Gastrointestinal: soft Integumentary: other (tattoos on left arm) unable to assess Results - Laboratory Findings CBC and BMP: 03/31/22 03:34 03/31/22 03:34 ABG ABG pH 7.315 pH Units (7.350-7.450) L 03/31/22 05:57 ABG pCO2 57.5 mm Hg 03/31/22 05:57 ABG pO2 80.1 mm Hg (80.0-90.0) 03/31/22 05:57 ABG O2 Saturation 97.1 % (95.0-99.0) 03/31/22 05:57 Abnormal lab findings: Abnormal Labs 03/30/22 03/30/22 03/30/22 08:15 08:15 17:00 WBC 14.4 H RBC 3.60 L Hgb 10.5 L Hct 32.1 L RDW 19.8 H Plt Count Lymph % (Auto) [place]ha % (Auto) 8.2 H [place]ha # (Auto) 1.2 H Seg Neutrophils % Seg Neutrophils # 10.1 H ABG pH 7.118 L* ABG HCO3 34.2 H ABG Base Excess 5.0 H ABG Hemoglobin Oxyhemoglobin BUN 55 H Creatinine 4.2 H Glucose 132 H POC Glucose Lactic Acid Calcium 7.9 L NT-Pro-B Natriuret Pep 1383 H Total Protein 6.1 L PTH Intact Urine Creatinine 03/30/22 03/30/22 03/30/22 17:16 17:43 19:50 WBC RBC Hgb Hct RDW Plt Count Lymph % (Auto) Desha % (Auto) Desha # (Auto) Seg Neutrophils % Seg Neutrophils # ABG pH 7.099 L* ABG HCO3 32.2 H ABG Base Excess ABG Hemoglobin 11.6 L Oxyhemoglobin 92.5 L BUN Creatinine Glucose POC Glucose 147 H Lactic Acid 0.60 L Calcium NT-Pro-B Natriuret Pep Total Protein PTH Intact Urine Creatinine 03/31/22 03/31/22 03/31/22 00:40 03:34 03:34 WBC RBC Hgb Hct RDW 19.7 H Plt Count 132 L Lymph % (Auto) 11.5 L Desha % (Auto) 10.4 H Desha # (Auto) 1.1 H Seg Neutrophils % 77.1 H Seg Neutrophils # 8.5 H ABG pH ABG HCO3 ABG Base Excess ABG Hemoglobin Oxyhemoglobin BUN 66 H Creatinine 4.7 H Glucose 112 H POC Glucose Lactic Acid Calcium 7.8 L NT-Pro-B Natriuret Pep Total Protein PTH Intact Urine Creatinine 105.1 H 03/31/22 03/31/22 03:34 05:57 WBC RBC Hgb Hct RDW Plt Count Lymph % (Auto) Desha % (Auto) Desha # (Auto) Seg Neutrophils % Seg Neutrophils # ABG pH 7.315 L ABG HCO3 28.6 H ABG Base Excess ABG Hemoglobin 11.8 L Oxyhemoglobin 94.1 L BUN Creatinine Glucose POC Glucose Lactic Acid Calcium NT-Pro-B Natriuret Pep Total Protein PTH Intact 146.1 H Urine Creatinine - Diagnostic Findings Chest x-ray: image reviewed (As stated in HPI) Assessment and Plan 71 y/o male with encephalopathy, worsening renal failure, and what appears to be recurrence of acute hypercapnic respiratory failure even after wearing bipap all night. 1. Hypercapnea is likely not a primary lung issue but secondary to another major cause (heart failure, renal failure etc) Patient does have some chronic hypercapnea suspected given his elevated bicarb on his chemistry. ordered STat ABG. Pending results, given patients mental status, maybe more suited for intubation rather than prolonged times on bipap. Chart states no smoking and no prior history of lung disease. Is obese, could have OHS. Will stop sedatives and pain meds. 2. CV-elevate bnp with cardiomegaly. Concern for CHF, follow up echo. Did not respond very well to diuresis 3. Renal-worsening renal function with minimal urine output from diuretics. Question if higher doses of diuretic are needed? Follow up renal recs 4. Overall prognosis appears guarded. Will touch base with IMS and family pending results of ABG
[2022-03-31 10:43] LABS: ABG Base Excess 1.4 mmol/L (-2.0-3.0); ABG HCO3 32.6 mmol/L (20.0-26.0); ABG Methemoglobin 0.5 % (0.0-1.5); ABG Oxygen Saturation 96.8 % (95.0-99.0); ABG PCO2 94.6 mm Hg; ABG PO2 103.4 mm Hg (80.0-90.0)
[2022-03-31 10:50] LABS: ABG PH 7.155 pH Units (7.350-7.450)
[2022-03-31] MEDS ORDERED: ROCURONIUM 50 MG/5 ML INJ IV ONE (11:01)
[2022-03-31] MEDS ORDERED: ETOMIDATE 20 MG/10 ML INJ IV ONE (11:02)
[2022-03-31] MEDS ORDERED: LIP THERAPY VASELINE TP PRN (11:19)
[2022-03-31] MEDS ORDERED: MINERAL OIL/PETROLATUM, WHITE OPHTH OINT 3.5 GM OU PRN (11:19)
--- NOTE | 2022-03-31 11:28 | Event Note ---
Date: 03/31/22 After obtaining phone consent from , patient transferred to [facility] and set up for endotracheal intubation. Patient is obtunded to stuporous. Placed supine and flat. Using the glide scope a 7.5 endotracheal tube was placed without difficulty. Stylet removed and cuff inflated. 50 of Tacho and 20 of etomidate were used for induction. Tube secured and awaiting x-ray. is aware and on her way.
--- NOTE | 2022-03-31 11:57 | XRay Report ---
CHEST 1 VIEW 03/31/2022 10:48 AM INDICATION / CLINICAL INFORMATION: NG tube placed, post intubation. COMPARISON: Earlier today at 0903 hours. FINDINGS: SUPPORT DEVICES: The endotracheal tube terminates 6.7 cm superior to the gia. Consider advancement by 2 cm. HEART / MEDIASTINUM: No significant abnormality. LUNGS / PLEURA: Bilateral pulmonary congestion or infiltrates have decreased by 50%. No significant p leural fluid or pneumothorax. ADDITIONAL FINDINGS: No significant additional findings. IMPRESSION: 1. Endotracheal tube terminates 6.7 cm superior to the gia. See above. 2. Improvement in the bilateral pulmonary edema or infiltrates. ABDOMEN 1 VIEW(S) INDICATION / CLINICAL INFORMATION: NG tube placed, post intubation. COMPARISON: None available. FINDINGS: TUBES / LINES: The nasogastric tube terminates in the fundus/body of the stomach. BOWEL GAS PATTERN: No significant abnormality. FREE AIR / EXTRALUMINAL GAS: None seen. ADDITIONAL FINDINGS: No significant additional findings. IMPRESSION: Adequate nasogastric tube placement. Signer Name: Dyllan Velasquez Jr, MD Signed: 03/31/2022 11:52 AM Workstation Name: [id number]
--- NOTE | 2022-03-31 12:53 | Progress Note ---
Assessment and Plan Patient is 71-year-old male with past medical history of CKD, diabetes, hypertension, hyperlipidemia, BPH, chronic back pain presented to the ED with several complaints such as altered mental status, bilateral lower extremity edema, and urinary retention x1 day. AMS Acute respiratory failure-pulmonology following MATILDA on CKD?-Nephrology following CHF Volume overload Hypertension Diabetes Hyperlipidemia BPH Obesity Chronic back pain Plan: EKG shows rhythm 83. No acute ischemic changes Telemetry reviewed patient appears to be sinus rhythm 70s- 80s BNP noted to be elevated, CXR shows volume overload, patient is hypoxic, and patient has bilateral lower extremity edema Lasix was increased to 40 mg IV yesterday however patient has not had significant urine output. Will defer volume management to nephrology Strict I&O's, daily weights, and repeat BMP in the a.m. with close monitoring of renal function Patient initially with soft BPs however following intubation patient's became hypertensive will initiate metoprolol 12.5 mg p.o. 4 times daily No JHONATAN or ARB due to renal function Preliminary echo shows normal LV function. Final report pending Patient seen in conjunction with Dr. Moody who agrees with assessment and plan of care - Patient Problems (1) HTN (hypertension) Current Visit: Yes Status: Acute (2) Obesity Current Visit: Yes Status: Acute (3) Acute respiratory failure Current Visit: Yes Status: Acute (4) Acute on chronic renal failure Current Visit: Yes Status: Acute (5) CHF (congestive heart failure) Current Visit: Yes Status: Acute (6) Hypoxia Current Visit: Yes Status: Acute (7) Urinary retention Current Visit: Yes Status: Acute Subjective Date of service: 03/31/22 Principal diagnosis: MATILDA, Volume overload, acute respiratory failure, AMS Interval history: Patient transferred to ICU and intubated Sinus 70s to 80s on monitor Objective Vital Signs Temp Pulse Pulse Resp BP Pulse Ox 03/31/22 11:15 85 0 L 139/75 100 03/31/22 09:50 91 H 21 107/71 99 03/31/22 08:56 79 03/31/22 08:01 88 15 108/66 100 03/31/22 08:00 97.8 F 79 21 98 03/31/22 07:01 82 12 132/69 99 03/31/22 06:01 82 15 142/67 100 03/31/22 05:00 79 14 142/67 95 03/31/22 04:00 75 73 20 142/67 98 03/31/22 03:20 74 03/31/22 03:00 73 14 128/62 98 03/31/22 02:00 70 17 135/64 98 03/31/22 01:07 73 20 115/64 95 03/31/22 01:00 70 13 115/64 98 03/31/22 00:10 69 03/31/22 00:00 97.3 F L 74 14 126/66 98 03/30/22 23:01 67 12 121/66 97 03/30/22 22:00 70 15 108/52 98 03/30/22 21:14 65 17 98 03/30/22 21:09 69 19 108/52 99 03/30/22 21:08 97.3 F L 03/30/22 21:01 66 21 108/52 99 03/30/22 20:31 76 18 127/59 100 03/30/22 20:00 69 11 L 127/59 96 03/30/22 19:45 95 H 03/30/22 19:31 71 21 127/63 94 03/30/22 19:15 73 20 127/63 96 03/30/22 19:00 70 12 127/63 96 03/30/22 18:31 74 12 134/68 92 03/30/22 18:19 69 26 H 93 03/30/22 18:11 78 15 134/68 97 03/30/22 18:00 75 21 134/68 98 03/30/22 17:51 76 20 127/59 95 03/30/22 17:41 78 14 127/59 95 03/30/22 17:31 76 15 127/59 95 03/30/22 17:21 73 17 127/59 98 03/30/22 17:10 71 14 127/59 97 03/30/22 17:05 97.7 F 03/30/22 17:00 71 14 127/59 97 03/30/22 16:52 72 16 97 03/30/22 16:51 75 13 146/70 95 03/30/22 16:41 75 13 146/70 97 03/30/22 16:33 75 16 146/70 98 03/30/22 16:11 75 16 126/66 96 03/30/22 16:00 85 16 126/66 97 03/30/22 15:51 74 14 128/63 96 03/30/22 15:41 72 18 97 03/30/22 15:30 136/68 84 03/30/22 15:27 74 17 128/63 97 03/30/22 14:50 74 14 136/68 89 03/30/22 14:41 74 15 143/73 91 03/30/22 14:31 73 14 133/77 91 03/30/22 14:21 74 20 133/77 93 03/30/22 14:11 74 16 108/62 91 03/30/22 14:01 73 15 112/63 92 03/30/22 13:50 72 15 112/63 90 03/30/22 13:41 70 15 112/64 90 03/30/22 13:31 69 15 121/63 88 03/30/22 13:20 72 19 121/63 94 03/30/22 13:11 74 22 118/63 93 03/30/22 13:01 71 16 122/62 92 03/30/22 12:50 73 17 122/62 91 - Physical Examination General: Other (Intubated) HEENT: Positive: Mucus Membranes Moist Neck: Positive: trachea midline Cardiac: Positive: Reg Rate and Rhythm Lungs: Positive: Decreased Breath Sounds Neuro: Positive: Grossly Intact Abdomen: Positive: Soft Skin: Negative: Rash, Suspicious Lesions, Ulceration Extremities: Present: upper extr. pulses, edema - Labs and Meds Cardiac Enzymes 03/31/22 Range/Units 03:34 AST 24 (5-40) units/L CBC 03/31/22 Range/Units 03:34 WBC 11.0 (4.5-11.0) K/mm3 RBC 4.14 (3.65-5.03) M/mm3 Hgb 12.0 (11.8-15.2) gm/dl Hct 36.9 (35.5-45.6) % Plt Count 132 L (140-440) K/mm3 Lymph # (Auto) 1.3 (1.2-5.4) K/mm3 [place] # (Auto) 1.1 H (0.0-0.8) K/mm3 Eos # (Auto) 0.1 (0.0-0.4) K/mm3 Baso # (Auto) 0.0 (0.0-0.1) K/mm3 Comprehensive Metabolic Panel 03/31/22 Range/Units 03:34 Sodium 144 (137-145) mmol/L Potassium 4.0 (3.6-5.0) mmol/L Chloride 100.0 (98-107) mmol/L Carbon Dioxide 30 (22-30) mmol/L BUN 66 H (9-20) mg/dL Creatinine 4.7 H (0.8-1.3) mg/dL Glucose 112 H (75-100) mg/dL Calcium 7.8 L (8.4-10.2) mg/dL AST 24 (5-40) units/L ALT 16 (7-56) units/L Alkaline Phosphatase 105 (35-129) units/L Total Protein 6.3 (6.3-8.2) g/dL Albumin 4.1 (3.9-5) g/dL - Imaging and Cardiology EKG: report reviewed, image reviewed Echo: pending - Telemetry EKG Rhythm: Sinus Rhythm - EKG Sinus rhythms and dysrhythmias: sinus rhythm
--- NOTE | 2022-03-31 13:02 | Progress Note ---
Assessment and Plan Assessment and plan: 71 YO Male with HTN, DM, Obesity Hypoventilation Syndrome, Vascular Dementia, Cerebral Atherosclerosis, BPH, Chronic Pain Syndrome, OA, HLD presents ED for evaluation. Patient is confused and lethargic the time of evaluation is provide history. Patient history provided by EMS staff, ED staff, as well as the patient was at bedside during exam and interview. As per the patient experienced increased weakness over the past 3 weeks with concomitant worsening lower extremity edema, decreased exercise tolerance, orthopnea, paroxysmal nocturnal dyspnea, dyspnea on exertion, dyspnea at rest, as well as subjective weight gain over the past 3 weeks. Patient was found to have increased lethargy today. EMS notified and upon arrival the patient was found to be in distress and subsequent transported to [facility] for further care and evaluation of the aforementioned symptoms. The patient was seen and evaluated in the emergency department. All lab and imaging studies reviewed. The patient was found to have a pulse oximetry of 89% on room air which is consistent with acute hypoxemic respiratory failure. The patient was placed on supplemental oxygen with mild improvement in symptoms and was subsequently placed on noninvasive positive pressure ventilation. Patient also found to have bilateral pneumonia complicated by sepsis, MATILDA with ATN, cardiorenal syndrome, as well as clinical symptoms consistent with new onset CHF decompensation. Patient admitted to IMCU due to increased risk of worsening symptoms and for medical stabilization. Cardiology team consulted in ED. nephrology team consulted in ED. Patient is lethargic with diminished cognition but has a positive gag reflex and is able to protect his airway at the time my evaluation. No prior admission for review. No medication listed at time of admission for reconciliation. Advanced care planning conducted in ED. Past History Past Medical History: arthritis, diabetes, hypertension, hyperlipidemia, other (See HPI) Past Surgical History: Other (Left knee, carpal tunnel, penile surgery) Social history: , lives with family. denies: smoking, prescription drug abuse Family history: diabetes, hypertension CXR 1. Probable CHF/volume overload. If fever is present, bilateral infiltrates could be considered. 03/31: Patient seen and examined this morning was obtunded on BiPAP repeat ABG showed some improvement. It was subsequently repeated again which showed worsening. Pulmonary was consulted and they ordered a second repeat and proceed in discussing with family for patient to be intubated which I do agree with. I will continue management of congestive heart failure which at this time has to be a balancing act as patient has persistently elevated creatinine although her with good urine output. We will try to obtain records from outside facility to understand overall baseline and baseline numbers from renal function and also cardiac function. Echocardiogram has been ordered. Cardiology evaluation is pending. Patient is critically ill and this has been communicated with the family. Further advanced care planning for 35 minutes. (1) Sepsis Current Visit: Yes Status: Acute Qualifiers: Severe sepsis acute organ dysfunction type: acute respiratory failure Plan to address problem: Sepsis protocol: Strict I's/O, monitoring output every shift, daily weight, monitor fluid balance, IV fluid resuscitation therapy as clinically indicated, IV antibiotic therapy, chest x-ray, urinalysis, serial lactic acid level, maintain mean arterial pressure greater than equal 65, blood culture, (2) Bilateral pneumonia Current Visit: Yes Status: Acute Plan to address problem: Pneumonia protocol: Chest x-ray, supplemental oxygen, pulse oximetry, IV antibiotic therapy, blood culture. Pulmonary toilet, (3) Acute hypoxemic and hypercapenic respiratory failure Current Visit: Yes Status: Acute Plan to address problem: Chest x-ray, supplemental oxygen, pulse oximetry, nebulizer therapy, pulmonary toilet, noninvasive positive pressure ventilation as clinically indicated, arterial blood gas. (4) New onset of congestive heart failure presume systolic Current Visit: Yes Status: Acute Plan to address problem: Strict I's/O, Q shift, daily weight, afterload reduction, blood pressure control, diuresis, cardiology team consulted, thyroid panel, magnesium level, echocardiogram ordered and pending at time of admission. (5) Acute kidney injury (MATILDA) with acute tubular necrosis (ATN) Current Visit: Yes Status: Acute Plan to address problem: BMP, monitor fluid balance, repeat BMP in a.m., urine electrolytes, renal ultrasound, nephrology team consulted. (6) Cardiorenal syndrome Current Visit: Yes Status: Acute Qualifiers: Heart failure presence: with heart failure Plan to address problem: Nephrology team consulted, monitor fluid balance, BMP, repeat BMP in a.m. to monitor serum creatinine as well as GFR, urine electrolytes. (7) Obesity hypoventilation syndrome Current Visit: Yes Status: Acute Plan to address problem: Balanced diet, increase physical activity discharge, outpatient pulmonary follow-up for sleep study. (8) Vascular dementia Current Visit: Yes Status: Acute Qualifiers: Dementia behavioral disturbance: without behavioral disturbance Qualified Code(s): F01.50 - Vascular dementia without behavioral disturbance Plan to address problem: Verbal prompting, verbal redirection, benzodiazepine therapy as clinically indicated. (9) Cerebral atherosclerosis Current Visit: Yes Status: Acute Plan to address problem: Risk factor reduction, supportive care, antiplatelet therapy as clinically indicated. (10) DVT prophylaxis Current Visit: Yes Status: Acute Plan to address problem: SCD to bilateral lower extremities while in bed (11) Advance care planning Current Visit: Yes Status: Acute Plan to address problem: Disease education conducted, care plan discussed, diagnoses discussed, prognosis discussed, patient is full code. Patient acknowledges understanding agree with care plan. (12) Preventative health care Current Visit: Yes Status: Acute Plan to address problem: Patient and counseled regarding home safety precautions, outpatient follow- up with primary care physician for all age and risk factor appropriate screening test. Patient poor prognosis discussed. Patient is high risk for deterioration. +30 minutes. The high probability of a clinically significant, sudden or life threatening deterioration of the [multiple organ] system(s) required my full and direct attention, intervention and personal management. The aggregate critical care time was [60] minutes. This time is in addition to time spent performing reported procedures but includes the following: [x] Data Review and interpretation [x] Patient assessment and monitoring of vital signs [x] Documentation [x] Medication orders and management History Interval history: Patient seen and examined, still very stuporous. Hospitalist Physical - Physical exam Narrative exam: General appearance: Present: obese, obtunded and on BiPAP - EENT Eyes: Present: PERRL ENT: hearing intact, clear oral mucosa, hearing decreased - Neck Neck: Present: supple, normal ROM, masses or JVD - Respiratory Respiratory effort: labored Respiratory: bilateral: diminished - Cardiovascular Heart Sounds: Present: S1 & S2. Absent: rub, click - Extremities Extremity abnormal: edema Peripheral Pulses: within normal limits - Abdominal General gastrointestinal: Present: soft, non-tender, non-distended, normal bowel sounds Male genitourinary: Present: normal - Integumentary Integumentary: Present: clear, warm, dry - Musculoskeletal Musculoskeletal: generalized weakness - Psychiatric Psychiatric: Unable to examine - Neurologic Neurologic: Moves extremities but not following any commands stuporous obtunded - Constitutional Vitals: Temp Pulse Resp BP Pulse Ox 97.8 F 85 0 L 139/75 100 03/31/22 08:00 03/31/22 11:15 03/31/22 11:15 03/31/22 11:15 03/31/22 11:15 General appearance: Present: mild distress, obese Results - Labs CBC & Chem 7: 03/31/22 03:34 03/31/22 03:34 Labs: Laboratory Last Values WBC 11.0 K/mm3 (4.5-11.0) 03/31/22 03:34 RBC 4.14 M/mm3 (3.65-5.03) 03/31/22 03:34 Hgb 12.0 gm/dl (11.8-15.2) 03/31/22 03:34 Hct 36.9 % (35.5-45.6) 03/31/22 03:34 MCV 89 fl (84-94) 03/31/22 03:34 MCH 29 pg (28-32) 03/31/22 03:34 MCHC 33 % (32-34) 03/31/22 03:34 RDW 19.7 % (13.2-15.2) H 03/31/22 03:34 Plt Count 132 K/mm3 (140-440) L 03/31/22 03:34 Lymph % (Auto) 11.5 % (13.4-35.0) L 03/31/22 03:34 [place] % (Auto) 10.4 % (0.0-7.3) H 03/31/22 03:34 Eos % (Auto) 0.6 % (0.0-4.3) 03/31/22 03:34 Baso % (Auto) 0.4 % (0.0-1.8) 03/31/22 03:34 Lymph # (Auto) 1.3 K/mm3 (1.2-5.4) 03/31/22 03:34 [place] # (Auto) 1.1 K/mm3 (0.0-0.8) H 03/31/22 03:34 Eos # (Auto) 0.1 K/mm3 (0.0-0.4) 03/31/22 03:34 Baso # (Auto) 0.0 K/mm3 (0.0-0.1) 03/31/22 03:34 Seg Neutrophils % 77.1 % (40.0-70.0) H 03/31/22 03:34 Seg Neutrophils # 8.5 K/mm3 (1.8-7.7) H 03/31/22 03:34 ABG pH 7.155 pH Units (7.350-7.450) L* 03/31/22 10:15 ABG pCO2 94.6 mm Hg 03/31/22 10:15 ABG pO2 103.4 mm Hg (80.0-90.0) H 03/31/22 10:15 ABG HCO3 32.6 mmol/L (20.0-26.0) H 03/31/22 10:15 ABG O2 Saturation 96.8 % (95.0-99.0) 03/31/22 10:15 ABG O2 Content 16.1 (0.0-44) 03/31/22 10:15 ABG Base Excess 1.4 mmol/L (-2.0-3.0) 03/31/22 10:15 ABG Hemoglobin 12.1 gm/dl (14.0-18.0) L 03/31/22 10:15 ABG Carboxyhemoglobin 2.2 % (0.0-5.0) 03/31/22 10:15 ABG Methemoglobin 0.5 % (0.0-1.5) 03/31/22 10:15 Oxyhemoglobin 94.1 % (95.0-99.0) L 03/31/22 10:15 FiO2 50 % 03/31/22 10:15 Sodium 144 mmol/L (137-145) 03/31/22 03:34 Potassium 4.0 mmol/L (3.6-5.0) 03/31/22 03:34 Chloride 100.0 mmol/L (98-107) 03/31/22 03:34 Carbon Dioxide 30 mmol/L (22-30) 03/31/22 03:34 Anion Gap 18 mmol/L 03/31/22 03:34 BUN 66 mg/dL (9-20) H 03/31/22 03:34 Creatinine 4.7 mg/dL (0.8-1.3) H 03/31/22 03:34 Estimated GFR 12 ml/min 03/31/22 03:34 BUN/Creatinine Ratio 14 % 03/31/22 03:34 Glucose 112 mg/dL (75-100) H 03/31/22 03:34 POC Glucose 147 mg/dL (70-105) H 03/30/22 17:43 Lactic Acid 0.60 mmol/L (0.7-2.0) L 03/30/22 17:16 Calcium 7.8 mg/dL (8.4-10.2) L 03/31/22 03:34 Magnesium 2.10 mg/dL (1.7-2.3) 03/30/22 14:11 Total Bilirubin 0.50 mg/dL (0.1-1.2) 03/31/22 03:34 AST 24 units/L (5-40) 03/31/22 03:34 ALT 16 units/L (7-56) 03/31/22 03:34 Alkaline Phosphatase 105 units/L (35-129) 03/31/22 03:34 NT-Pro-B Natriuret Pep 1383 pg/mL (0-900) H 03/30/22 08:15 Total Protein 6.3 g/dL (6.3-8.2) 03/31/22 03:34 Albumin 4.1 g/dL (3.9-5) 03/31/22 03:34 Albumin/Globulin Ratio 1.9 % 03/31/22 03:34 TSH 3.000 mlU/mL (0.270-4.200) 03/30/22 14:11 Free T4 0.94 ng/dL (0.76-1.46) 03/30/22 14:11 PTH Intact 146.1 pg/mL (15-65) H 03/31/22 03:34 Urine Color Yellow (Yellow) 03/30/22 Unknown Urine Turbidity Slightly-cloudy (Clear) 03/30/22 Unknown Urine pH 5.0 (5.0-7.0) 03/30/22 Unknown Ur Specific [place] 1.014 (1.003-1.030) 03/30/22 Unknown Urine Protein 30 mg/dl mg/dL (Negative) 03/30/22 Unknown Urine Glucose (UA) Neg mg/dL (Negative) 03/30/22 Unknown Urine Ketones Neg mg/dL (Negative) 03/30/22 Unknown Urine Blood Neg (Negative) 03/30/22 Unknown Urine Nitrite Neg (Negative) 03/30/22 Unknown Urine Bilirubin Neg (Negative) 03/30/22 Unknown Urine Urobilinogen 2.0 mg/dL (<2.0) 03/30/22 Unknown Ur Leukocyte Esterase Tr (Negative) 03/30/22 Unknown Urine WBC (Auto) 4.0 /HPF (0.0-6.0) 03/30/22 Unknown Urine RBC (Auto) 2.0 /HPF (0.0-6.0) 03/30/22 Unknown U Epithel Cells (Auto) 2.0 /HPF (0-13.0) 03/30/22 Unknown Amorphous Crystals Few 03/30/22 Unknown Urine Mucus Few /HPF 03/30/22 Unknown Urine Creatinine 105.1 mg/dL (0.1-20.0) H 03/31/22 00:40 Urine Sodium 28 mmol/L 03/31/22 00:40 Blood Type O POSITIVE 03/30/22 14:12 Antibody Screen Negative 03/30/22 14:12 Microbiology: Microbiology 03/30/22 17:16 Peripheral/Venous Blood Culture - Preliminary Culture in Progress 03/30/22 14:11 Peripheral/Venous Blood Culture - Preliminary Culture in Progress Madrigal/IV: Voiding Method Indwelling Catheter Active Medications - Current Medications Current Medications: Generic Name Dose Route Start Last Admin Trade Name Freq PRN Reason Stop Dose Admin Acetaminophen 650 mg 03/30/22 13:41 Acetaminophen 325 Mg Tab PO Q6H PRN Pain, Mild (1-3) Albuterol 2.5 mg 03/30/22 13:39 Albuterol 2.5 Mg/3 Ml Nebu IH Q3HRT PRN Shortness Of Breath Famotidine 20 mg 03/31/22 22:00 Famotidine 20 Mg/2 Ml Inj IV BID ELMER Furosemide 40 mg 03/30/22 18:00 03/31/22 06:50 Furosemide 40 Mg/4 Ml Inj IV 40 mg 0600,1800 ELMER Administration Hydromorphone HCl 1 mg 03/31/22 11:21 Hydromorphone 1 Mg/1 Ml Inj IV Q4H PRN Pain , Severe (7-10) Hydrophilic Ointment 1 applic 03/31/22 11:19 Lip Therapy Vaseline TP Q2HR PRN Dry Lips Levofloxacin/Dextrose 750 mg in 150 mls @ 100 mls/hr 03/30/22 15:00 03/30/22 16:45 Levaquin 750mg/150ml IV 100 mls/hr Q48H ELMER Administration Protocol Propofol 1,000 mg in 100 mls @ 3.84 mls/hr 03/31/22 12:00 Diprivan 10 Mg/Ml IV TITR ELMER Protocol 5 MCG/KG/MIN Metoprolol Tartrate 12.5 mg 03/31/22 14:00 Metoprolol Tartrate 25 Mg Tab PO QID ELMER Multi-Ingred Cream/Lotion/Oil/Oint 1 applic 03/31/22 11:19 Mineral Oil/Petrolatum, White Ophth Oint 3.5 Gm OU Q4HR PRN Dry Eye(s) Nitroglycerin 0.4 mg 03/30/22 13:43 Nitroglycerin 0.4 Mg Tab Subl SL .Q5MIN PRN Chest Pain Senna/Docusate Sodium 1 tab 03/31/22 22:00 Sennosides/Docusate Sodium 8.6/50 Mg Tab FEEDTUBE BID ELMER Sodium Chloride 10 ml 03/30/22 22:00 03/31/22 09:02 Sodium Chloride 0.9% 10 Ml Flush Syringe IV 10 ml BID ELMER Administration Sodium Chloride 10 ml 03/30/22 13:39 Sodium Chloride 0.9% 10 Ml Flush Syringe IV PRN PRN LINE FLUSH
[2022-03-31] MEDS: METOPROLOL TARTRATE 25 MG TAB PO SCH ×3 (13:24→21:45)
[2022-03-31] MEDS: HYDROmorphone 1 MG/1 ML INJ IV PRN ×2 (13:25→21:46)
[2022-03-31 13:52] LABS: ABG HCO3 27.6 mmol/L (20.0-26.0); ABG Methemoglobin 0.5 % (0.0-1.5); ABG Oxygen Saturation 97.2 % (95.0-99.0); ABG PCO2 47.8 mm Hg; ABG PH 7.38 pH Units (7.350-7.450); ABG PO2 76.8 mm Hg (80.0-90.0)
[2022-03-31] MEDS: FAMOTIDINE 20 MG/2 ML INJ IV SCH (21:45)
[2022-03-31] MEDS: SENNOSIDES/DOCUSATE SODIUM 8.6/50 MG TAB FEEDTUBE SCH (21:46)
[2022-04-01 04:02] LABS: ABG Base Excess 3.6 mmol/L (-2.0-3.0); ABG HCO3 27.7 mmol/L (20.0-26.0); ABG Methemoglobin 0.7 % (0.0-1.5); ABG Oxygen Saturation 99.1 % (95.0-99.0); ABG PCO2 39.8 mm Hg; ABG PH 7.459 pH Units (7.350-7.450); ABG PO2 169.2 mm Hg (80.0-90.0)
--- NOTE | 2022-04-01 04:13 | XRay Report ---
CHEST 1 VIEW 04/01/2022 3:00 AM INDICATION / CLINICAL INFORMATION: follow up respiratory failure. COMPARISON: chest radiograph performed yesterday FINDINGS: SUPPORT DEVICES: The support lines and tubes are in stable and expected position. HEART / MEDIASTINUM: Stable cardiomediastinal silhouette for AP technique. LUNGS / PLEURA: No pneumothorax. Stable pulmonary findings without interval detrimental change. ADDITIONAL FINDINGS: No significant additional findings. IMPRESSION: 1. Stable cardiopulmonary findings without pneumothorax or other interval detrimental change. 2. Stable expected support line/tube position. Signer Name: Lakhwinder Israel MD Signed: 04/01/2022 4:08 AM Workstation Name: [id number]
[2022-04-01 05:04] LABS: Hematocrit 33.8 % (35.5-45.6); Hemoglobin 11.2 gm/dl (11.8-15.2); Mean Corpuscular HGB Conc 33 % (32-34); Mean Corpuscular Volume 87 fl (84-94); Platelet Count 117 K/mm3 (140-440); Red Blood Count 3.88 M/mm3 (3.65-5.03); Red Cell Distribution Width 19.5 % (13.2-15.2)
[2022-04-01 05:23] LABS: Albumin 3.6 g/dL (3.9-5); Calcium 8.3 mg/dL (8.4-10.2)
[2022-04-01] MEDS: FUROSEMIDE 40 MG/4 ML INJ IV SCH ×2 (06:00→18:04)
[2022-04-01] MEDS: HYDROmorphone 1 MG/1 ML INJ IV PRN (06:00)
--- NOTE | 2022-04-01 08:47 | Progress Note ---
Assessment and Plan 1. Acute kidney injury: Suspect MATILDA in the setting of Decompensated CHF. Renal US negative for hydro/stone. Baseline renal function unknown. Suspect background CKD. Monitor renal function. Creatinine level increasing. Avoid nephrotoxic agents. Meds dosage based on GFR. 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 2. FEN: Volume overload, on IV Lasix, monitor. Hypernatremia, on water flushes, monitor. Replete lytes as needed. Monitor lytes and volume status. 3. Acute mixed Resp failure, POA: 03/31: Intubated, remain on vent. Was on BIPAP. Followed by Pulmonary. Monitor. 4. ecompensated HFpEF: Echo with normal EF. Followed by Cards. 5. Acute Encephalopathy, POA: Monitor. 6. DM: 7. Hypertension: 8. BPH. Subjective: Patient was seen and examined at the bedside. Nurse at the bedside. Examination: General appearance: well-developed, obese, appears stated age, intubated, on MV HEENT: atraumatic, no icterus Neck: trachea midline Respiratory: diminished breath sounds heard Heart: S1S2, regular, no murmur Abdomen: soft, obese, bowel sounds heard, NT Integumentary: no obvious rash Neurologic: lethargic, moving ext Ext: trace Ext and dependent edema : Madrigal catheter Subjective Date of service: 04/01/22 Principal diagnosis: MATILDA, Volume overload, acute respiratory failure, AMS Objective - Vital Signs Vital signs: Vital Signs - 12hr 03/31/22 03/31/22 03/31/22 21:00 21:46 22:01 Temperature Pulse Rate 78 78 Pulse Rate [ From Monitor] Respiratory 22 26 H 26 H Rate Blood Pressure 143/77 151/78 O2 Sat by Pulse 100 100 Oximetry 03/31/22 03/31/22 03/31/22 22:13 23:00 23:59 Temperature Pulse Rate 74 73 70 Pulse Rate [ From Monitor] Respiratory 26 H 26 H Rate Blood Pressure 151/78 150/79 150/79 O2 Sat by Pulse 100 100 100 Oximetry 04/01/22 04/01/22 04/01/22 00:00 01:00 02:00 Temperature 101.3 F H Pulse Rate 68 69 64 Pulse Rate [ 64 From Monitor] Respiratory 26 H 26 H 26 H Rate Blood Pressure 149/77 141/77 141/75 O2 Sat by Pulse 100 100 100 Oximetry 04/01/22 04/01/22 04/01/22 03:00 03:19 04:00 Temperature 99.5 F Pulse Rate 62 65 Pulse Rate [ 64 From Monitor] Respiratory 26 H 26 H Rate Blood Pressure 140/70 O2 Sat by Pulse 100 98 Oximetry 04/01/22 04/01/22 04/01/22 04:01 04:33 05:00 Temperature Pulse Rate 71 66 67 Pulse Rate [ From Monitor] Respiratory 20 26 H Rate Blood Pressure 153/69 153/69 136/62 O2 Sat by Pulse 100 100 100 Oximetry 04/01/22 04/01/22 04/01/22 06:00 06:01 07:00 Temperature Pulse Rate 66 63 Pulse Rate [ From Monitor] Respiratory 26 H 26 H 25 H Rate Blood Pressure 150/69 132/70 O2 Sat by Pulse 100 100 Oximetry 04/01/22 04/01/22 04/01/22 07:27 07:28 07:49 Temperature 98.5 F Pulse Rate 61 60 Pulse Rate [ 61 From Monitor] Respiratory 26 H Rate Blood Pressure 132/70 O2 Sat by Pulse 98 100 Oximetry 04/01/22 04/01/22 04/01/22 07:54 08:00 08:03 Temperature Pulse Rate 60 65 67 Pulse Rate [ From Monitor] Respiratory 26 H 26 H Rate Blood Pressure 132/70 163/85 O2 Sat by Pulse 100 100 99 Oximetry - Lab 04/01/22 04:00 04/01/22 04:00 Most recent lab results ABG pH 7.459 pH Units (7.350-7.450) H 04/01/22 03:45 ABG pCO2 39.8 mm Hg 04/01/22 03:45 ABG pO2 169.2 mm Hg (80.0-90.0) H 04/01/22 03:45 ABG HCO3 27.7 mmol/L (20.0-26.0) H 04/01/22 03:45 ABG O2 Saturation 99.1 % (95.0-99.0) H 04/01/22 03:45 Calcium 8.3 mg/dL (8.4-10.2) L 04/01/22 04:00 Magnesium 2.10 mg/dL (1.7-2.3) 03/30/22 14:11 Urine Creatinine 105.1 mg/dL (0.1-20.0) H 03/31/22 00:40 Urine Sodium 28 mmol/L 03/31/22 00:40 Medications & Allergies - Medications Allergies/Adverse Reactions: Allergies No Known Allergies Allergy (Verified 03/30/22 07:22) Home Medications: Home Medications Medication Instructions Recorded Confirmed Last Taken Type AtorvaSTATin 03/30/22 Unknown History AtorvaSTATin [Lipitor] 10 mg PO QHS 03/30/22 03/30/22 Unknown History Dulaglutide [Trulicity] QWEEK 03/30/22 Unknown History Finasteride 5 mg PO DAILY 03/30/22 03/30/22 Unknown History Furosemide 20 mg PO DAILY 03/30/22 03/30/22 Unknown History Insulin Aspart (Nf) [NovoLOG 100 03/30/22 Unknown History UNITS/ML VIAL] Levothyroxine 0.125 mg PO BID 03/30/22 03/30/22 Unknown History Lyrica 200 mg PO BID 03/30/22 03/30/22 Unknown History Potassium 03/30/22 Unknown History Potassium Chloride [K-Dur] 20 meq PO BID 03/30/22 03/30/22 Unknown History Tamsulosin 0.4 mg PO DAILY 03/30/22 03/30/22 Unknown History Tresiba 03/30/22 Unknown History Trimethoprim 100 mg PO HS 03/30/22 03/30/22 Unknown History Trulicity 03/30/22 Unknown History allopurinoL 100 mg PO BID 03/30/22 03/30/22 Unknown History amLODIPine 5 mg PO DAILY 03/30/22 03/30/22 Unknown History carvediloL 03/30/22 Unknown History carvediloL [Coreg] 6.25 mg PO BID 03/30/22 03/30/22 Unknown History cephALEXin 250 mg PO DAILY 03/30/22 03/30/22 Unknown History metFORMIN 500 mg PO BID 03/30/22 03/30/22 Unknown History Active Medications: Generic Name Dose Route Start Last Admin Trade Name Freq PRN Reason Stop Dose Admin Acetaminophen 650 mg 03/30/22 13:41 04/01/22 00:33 Acetaminophen 325 Mg Tab PO 650 mg Q6H PRN Administration Pain, Mild (1-3) Albuterol 2.5 mg 03/30/22 13:39 Albuterol 2.5 Mg/3 Ml Nebu IH Q3HRT PRN Shortness Of Breath Famotidine 20 mg 03/31/22 22:00 03/31/22 21:45 Famotidine 20 Mg/2 Ml Inj IV 20 mg BID ELMER Administration Furosemide 40 mg 03/30/22 18:00 04/01/22 06:00 Furosemide 40 Mg/4 Ml Inj IV 40 mg 0600,1800 ELMER Administration Hydromorphone HCl 1 mg 03/31/22 11:21 04/01/22 06:00 Hydromorphone 1 Mg/1 Ml Inj IV 1 mg Q4H PRN Administration Pain , Severe (7-10) Hydrophilic Ointment 1 applic 03/31/22 11:19 Lip Therapy Vaseline TP Q2HR PRN Dry Lips Levofloxacin/Dextrose 750 mg in 150 mls @ 100 mls/hr 03/30/22 15:00 03/30/22 16:45 Levaquin 750mg/150ml IV 100 mls/hr Q48H ELMER Administration Protocol Propofol 1,000 mg in 100 mls @ 3.84 mls/hr 03/31/22 12:00 Diprivan 10 Mg/Ml IV TITR ELMER Protocol 5 MCG/KG/MIN Metoprolol Tartrate 12.5 mg 03/31/22 14:00 03/31/22 21:45 Metoprolol Tartrate 25 Mg Tab PO 12.5 mg QID ELMER Administration Multi-Ingred Cream/Lotion/Oil/Oint 1 applic 03/31/22 11:19 Mineral Oil/Petrolatum, White Ophth Oint 3.5 Gm OU Q4HR PRN Dry Eye(s) Nitroglycerin 0.4 mg 03/30/22 13:43 Nitroglycerin 0.4 Mg Tab Subl SL .Q5MIN PRN Chest Pain Potassium Chloride 40 meq 04/01/22 10:00 Potassium Chloride 20 Meq Packet FEEDTUBE 04/01/22 22:01 BID ELMER Senna/Docusate Sodium 1 tab 03/31/22 22:00 03/31/22 21:46 Sennosides/Docusate Sodium 8.6/50 Mg Tab FEEDTUBE 1 tab BID ELMER Administration Sodium Chloride 10 ml 03/30/22 22:00 03/31/22 21:47 Sodium Chloride 0.9% 10 Ml Flush Syringe IV 10 ml BID ELMER Administration Sodium Chloride 10 ml 03/30/22 13:39 Sodium Chloride 0.9% 10 Ml Flush Syringe IV PRN PRN LINE FLUSH
--- NOTE | 2022-04-01 09:43 | Electrocardiograph Report ---
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
[2022-04-01] MEDS: METOPROLOL TARTRATE 25 MG TAB PO SCH (09:50)
[2022-04-01] MEDS: FAMOTIDINE 20 MG/2 ML INJ IV SCH ×2 (09:51→21:38)
[2022-04-01] MEDS: SENNOSIDES/DOCUSATE SODIUM 8.6/50 MG TAB FEEDTUBE SCH ×2 (09:51→21:33)
[2022-04-01] MEDS: FREE WATER PO SCH ×3 (10:10→18:00)
[2022-04-01] MEDS: POTASSIUM CHLORIDE 20 MEQ PACKET FEEDTUBE SCH ×2 (10:10→21:32)
--- NOTE | 2022-04-01 11:54 | Progress Note ---
<GAVIN CYR - Last Filed: 04/01/22 16:39> Assessment and Plan Assessment and plan: This is a 71-year-old male with known past medical history of HTN, HLD, DM, CKD, BPH, chronic pain, and OA admitted for acute on chronic renal failure and acute hypoxic and hypercapnic respiratory failure requiring ventilatory support Hospital Course to Date: 03/31: Patient seen and examined this morning was obtunded on BiPAP repeat ABG showed some improvement. It was subsequently repeated again which showed worsening. Pulmonary was consulted and they ordered a second repeat and proceed in discussing with family for patient to be intubated which I do agree with. I will continue management of congestive heart failure which at this time has to be a balancing act as patient has persistently elevated creatinine although her with good urine output. We will try to obtain records from outside facility to understand overall baseline and baseline numbers from renal function and also cardiac function. Echocardiogram has been ordered. Cardiology evaluation is pending. Patient is critically ill and this has been communicated with the family. Further advanced care planning for 35 minutes. 04/01: Stable on the vent, fully AAO and appropriate, following commands. Per [facility] plan for PSV trial for possible extubation today. Renal function is unchanged, however, back with good UOP-over 2L in last 24hrs. Continue IV diuretic, nephrology is also following. Patient remains afebrile with no WBCs, VSS. Check procal, continue current empiric IV Abx for now. D/C IV abx if procal is unremarkable. FWF added for hypernatremia, H repleted, continue to monitor electrolytes and replete as needed. Assessment and Plan #Acute Hypoxic and Hypercapnic Respiratory Failure #Fluid Overload vs Bilateral Pneumonia #H/o Sleep Apnea, noncompliant with CPAP - Intubated on 03/31 due to worsen respiratory acidosis - Vent setting: PRVC-40%,6,26,450 - AM ABG noted - CCM consulted, appreciate recommendations - Continue empiric IV abx and Nebs treatment per CCM - On IV lasix - VAP bundle addressed - Aspiration precaution HOB above 30 - Daily SBT and SAT trials as tolerated - Daily ABG and CXR - Continue SPO2 monitoring for SPO2 goal above 92% #Diastolic Congestive Heart Failure with preserved EF- 50-55% #Hypertension #Hyperlipidemia - Echocardiogram reviewed, suggesting diastolic dysfunction LVEF 50-55% - Cardiology consulted, appreciate recommendations - On IV lasix and BB, resume home statin - Continue blood pressure monitor per protocol - Maintain MAP above 65 - Strict I&Os and daily weight #Acute on Chronic Kidney Disease(CKD) #Cardiorenal Syndrome #Hypokalemia #Hypernatremia - Nephrology on consult, appreciated recommendation - On IV Lasix BID - Madrigal in placed. Great UOP, over 2L in last 24hrs - Strict intake and output - Avoid nephrotoxic medications; Renally dose medications - K repleted and FWF added for hypernatremia - Monitor and replace electrolytes as needed #Sepsis #Possible Bilateral Pneumonia - Remains afebrile with no leukocytosis, VSS - Blood cultures with NGTD, sputum culture pending - Check Procal, continue current empiric IV abx for now - D/C IV antibiotic if procal is unremarkable - F/U on cultures - Daily CBC monitor - Consider ID consult if febrile or/and if leukocytosis reoccur #Thrombocytopenia - Worsen thrombocytopenia - H&H stable, no s/s of any active bleeding - Continue to trend CBC - Transfuse for hgb less than 7 and plt less than 20 #Obesity Hypoventilation Syndrome #H/o Sleep Apnea- non compliant with CPAP - Balanced diet, increase physical activity discharge - Patient admit noncompliance with CPAP - Risk and benefits of CPAP compliance discussed. Patient to follow up with own pulmonary for different alternatives #Type 2 Diabetes Mellitus - BG chech and SSI Q6hrs - Avoid hypoglycemia - Hypoglycemic protocol #GI/DVT Prophylaxis - PPI- Pepcid - SCD to bilateral lower extremities while in bed #Advance Care Planning - Disease education data, care plan, diagnoses, and prognosis were discussed with patient and his at the bedside. Patient is a FULL code. They acknowledged understanding and agreed with current care plan. The high probability of a clinically significant, sudden or life threatening deterioration of the [multiple] system(s) required my full and direct attention, intervention and personal management. The aggregate critical care time was [60] minutes. This time is in addition to time spent performing reported procedures but includes the following: [x] Data Review and interpretation [x] Patient assessment and monitoring of vital signs [x] Documentation [x] Medication orders and management Disposition Plan: ICU Total Time Spent with Patient (Minutes): 60 History Interval history: Patient seen and examined at the bedside. Intubated, awake and appropriate, following commands not on any sedations. VSS. DOUG overnight Hospitalist Physical - Constitutional Vitals: Temp Pulse Resp BP Pulse Ox 97.7 F 69 16 164/84 98 04/01/22 11:43 04/01/22 11:31 04/01/22 11:28 04/01/22 11:00 04/01/22 11:28 General appearance: Present: no acute distress, well-nourished, obese - EENT Eyes: Present: PERRL, EOM intact ENT: hearing intact - Neck Neck: Present: normal ROM - Respiratory Respiratory effort: normal Respiratory: bilateral: rhonchi - Cardiovascular Rhythm: regular Heart Sounds: Present: S1 & S2 - Extremities Extremities: no ischemia, pulses intact, pulses symmetrical Extremity abnormal: edema - Peripheral Assessment Generalized Edema Type: Non-pitting Edema Degree: 2+ Capillary Refill: < 3 seconds Skin Temperature: Warm Peripheral Pulses: within normal limits - Abdominal General gastrointestinal: soft, non-distended, normal bowel sounds - Integumentary Integumentary: Present: clear, warm, dry - Psychiatric Psychiatric: appropriate mood/affect, cooperative, other (Intubated, fully AAO, following commands) - Neurologic Neurologic: moves all extremities, other (Intubated, fully AAO, following commands) - Allied Health Allied health notes reviewed: nursing, case management Results - Labs CBC & Chem 7: 04/01/22 04:00 04/01/22 04:00 Labs: Laboratory Last Values WBC 10.4 K/mm3 (4.5-11.0) 04/01/22 04:00 RBC 3.88 M/mm3 (3.65-5.03) 04/01/22 04:00 Hgb 11.2 gm/dl (11.8-15.2) L 04/01/22 04:00 Hct 33.8 % (35.5-45.6) L 04/01/22 04:00 MCV 87 fl (84-94) 04/01/22 04:00 MCH 29 pg (28-32) 04/01/22 04:00 MCHC 33 % (32-34) 04/01/22 04:00 RDW 19.5 % (13.2-15.2) H 04/01/22 04:00 Plt Count 117 K/mm3 (140-440) L 04/01/22 04:00 Lymph % (Auto) 11.5 % (13.4-35.0) L 03/31/22 03:34 [place] % (Auto) 10.4 % (0.0-7.3) H 03/31/22 03:34 Eos % (Auto) 0.6 % (0.0-4.3) 03/31/22 03:34 Baso % (Auto) 0.4 % (0.0-1.8) 03/31/22 03:34 Lymph # (Auto) 1.3 K/mm3 (1.2-5.4) 03/31/22 03:34 [place] # (Auto) 1.1 K/mm3 (0.0-0.8) H 03/31/22 03:34 Eos # (Auto) 0.1 K/mm3 (0.0-0.4) 03/31/22 03:34 Baso # (Auto) 0.0 K/mm3 (0.0-0.1) 03/31/22 03:34 Seg Neutrophils % 77.1 % (40.0-70.0) H 03/31/22 03:34 Seg Neutrophils # 8.5 K/mm3 (1.8-7.7) H 03/31/22 03:34 ABG pH 7.459 pH Units (7.350-7.450) H 04/01/22 03:45 ABG pCO2 39.8 mm Hg 04/01/22 03:45 ABG pO2 169.2 mm Hg (80.0-90.0) H 04/01/22 03:45 ABG HCO3 27.7 mmol/L (20.0-26.0) H 04/01/22 03:45 ABG O2 Saturation 99.1 % (95.0-99.0) H 04/01/22 03:45 ABG O2 Content 15.4 (0.0-44) 04/01/22 03:45 ABG Base Excess 3.6 mmol/L (-2.0-3.0) H 04/01/22 03:45 ABG Hemoglobin 11.0 gm/dl (14.0-18.0) L 04/01/22 03:45 ABG Carboxyhemoglobin 1.4 % (0.0-5.0) 04/01/22 03:45 ABG Methemoglobin 0.7 % (0.0-1.5) 04/01/22 03:45 Oxyhemoglobin 97.0 % (95.0-99.0) 04/01/22 03:45 FiO2 60 % 04/01/22 03:45 Sodium 147 mmol/L (137-145) H 04/01/22 04:00 Potassium 3.2 mmol/L (3.6-5.0) L 04/01/22 04:00 Chloride 105.6 mmol/L (98-107) 04/01/22 04:00 Carbon Dioxide 27 mmol/L (22-30) 04/01/22 04:00 Anion Gap 18 mmol/L 04/01/22 04:00 BUN 73 mg/dL (9-20) H 04/01/22 04:00 Creatinine 4.7 mg/dL (0.8-1.3) H 04/01/22 04:00 Estimated GFR 12 ml/min 04/01/22 04:00 BUN/Creatinine Ratio 16 % 04/01/22 04:00 Glucose 98 mg/dL (75-100) 04/01/22 04:00 POC Glucose 141 mg/dL (70-105) H 04/01/22 05:17 Lactic Acid 0.60 mmol/L (0.7-2.0) L 03/30/22 17:16 Calcium 8.3 mg/dL (8.4-10.2) L 04/01/22 04:00 Magnesium 2.10 mg/dL (1.7-2.3) 03/30/22 14:11 Total Bilirubin 0.70 mg/dL (0.1-1.2) 04/01/22 04:00 AST 21 units/L (5-40) 04/01/22 04:00 ALT 13 units/L (7-56) 04/01/22 04:00 Alkaline Phosphatase 93 units/L (35-129) 04/01/22 04:00 NT-Pro-B Natriuret Pep 1383 pg/mL (0-900) H 03/30/22 08:15 Total Protein 5.6 g/dL (6.3-8.2) L 04/01/22 04:00 Albumin 3.6 g/dL (3.9-5) L 04/01/22 04:00 Albumin/Globulin Ratio 1.8 % 04/01/22 04:00 TSH 3.000 mlU/mL (0.270-4.200) 03/30/22 14:11 Free T4 0.94 ng/dL (0.76-1.46) 03/30/22 14:11 PTH Intact 146.1 pg/mL (15-65) H 03/31/22 03:34 Urine Color Yellow (Yellow) 03/30/22 Unknown Urine Turbidity Slightly-cloudy (Clear) 03/30/22 Unknown Urine pH 5.0 (5.0-7.0) 03/30/22 Unknown Ur Specific [place] 1.014 (1.003-1.030) 03/30/22 Unknown Urine Protein 30 mg/dl mg/dL (Negative) 03/30/22 Unknown Urine Glucose (UA) Neg mg/dL (Negative) 03/30/22 Unknown Urine Ketones Neg mg/dL (Negative) 03/30/22 Unknown Urine Blood Neg (Negative) 03/30/22 Unknown Urine Nitrite Neg (Negative) 03/30/22 Unknown Urine Bilirubin Neg (Negative) 03/30/22 Unknown Urine Urobilinogen 2.0 mg/dL (<2.0) 03/30/22 Unknown Ur Leukocyte Esterase Tr (Negative) 03/30/22 Unknown Urine WBC (Auto) 4.0 /HPF (0.0-6.0) 03/30/22 Unknown Urine RBC (Auto) 2.0 /HPF (0.0-6.0) 03/30/22 Unknown U Epithel Cells (Auto) 2.0 /HPF (0-13.0) 03/30/22 Unknown Amorphous Crystals Few 03/30/22 Unknown Urine Mucus Few /HPF 03/30/22 Unknown Urine Creatinine 105.1 mg/dL (0.1-20.0) H 03/31/22 00:40 Urine Sodium 28 mmol/L 03/31/22 00:40 Blood Type O POSITIVE 03/30/22 14:12 Antibody Screen Negative 03/30/22 14:12 Microbiology: Microbiology 03/31/22 13:12 Tracheal Aspirate Sputum Culture - Preliminary 03/30/22 17:16 Peripheral/Venous Blood Culture - Preliminary NO GROWTH AFTER 24 HOURS 03/30/22 14:11 Peripheral/Venous Blood Culture - Preliminary NO GROWTH AFTER 24 HOURS Madrigal/IV: Voiding Method Indwelling Catheter Active Medications - Current Medications Current Medications: Generic Name Dose Route Start Last Admin Trade Name Freq PRN Reason Stop Dose Admin Acetaminophen 650 mg 03/30/22 13:41 04/01/22 00:33 Acetaminophen 325 Mg Tab PO 650 mg Q6H PRN Administration Pain, Mild (1-3) Albuterol 2.5 mg 03/30/22 13:39 Albuterol 2.5 Mg/3 Ml Nebu IH Q3HRT PRN Shortness Of Breath Famotidine 20 mg 03/31/22 22:00 04/01/22 09:51 Famotidine 20 Mg/2 Ml Inj IV 20 mg BID ELMER Administration Furosemide 40 mg 03/30/22 18:00 04/01/22 06:00 Furosemide 40 Mg/4 Ml Inj IV 40 mg 0600,1800 ELMER Administration Hydromorphone HCl 1 mg 03/31/22 11:21 04/01/22 06:00 Hydromorphone 1 Mg/1 Ml Inj IV 1 mg Q4H PRN Administration Pain , Severe (7-10) Hydrophilic Ointment 1 applic 03/31/22 11:19 Lip Therapy Vaseline TP Q2HR PRN Dry Lips Levofloxacin/Dextrose 750 mg in 150 mls @ 100 mls/hr 03/30/22 15:00 03/30/22 16:45 Levaquin 750mg/150ml IV 100 mls/hr Q48H ELMER Administration Protocol Propofol 1,000 mg in 100 mls @ 3.84 mls/hr 03/31/22 12:00 Diprivan 10 Mg/Ml IV TITR ELMER Protocol 5 MCG/KG/MIN Metoprolol Tartrate 12.5 mg 03/31/22 14:00 04/01/22 09:50 Metoprolol Tartrate 25 Mg Tab PO 12.5 mg QID ELMER Administration Multi-Ingred Cream/Lotion/Oil/Oint 1 applic 03/31/22 11:19 Mineral Oil/Petrolatum, White Ophth Oint 3.5 Gm OU Q4HR PRN Dry Eye(s) Nitroglycerin 0.4 mg 03/30/22 13:43 Nitroglycerin 0.4 Mg Tab Subl SL .Q5MIN PRN Chest Pain Potassium Chloride 40 meq 04/01/22 10:00 04/01/22 10:10 Potassium Chloride 20 Meq Packet FEEDTUBE 04/01/22 22:01 40 meq BID ELMER Administration Senna/Docusate Sodium 1 tab 03/31/22 22:00 04/01/22 09:51 Sennosides/Docusate Sodium 8.6/50 Mg Tab FEEDTUBE 1 tab BID ELMER Administration Sodium Chloride 10 ml 03/30/22 22:00 04/01/22 09:50 Sodium Chloride 0.9% 10 Ml Flush Syringe IV 10 ml BID ELMER Administration Sodium Chloride 10 ml 03/30/22 13:39 Sodium Chloride 0.9% 10 Ml Flush Syringe IV PRN PRN LINE FLUSH Nutrition/Malnutrition Assess - Dietary Evaluation Nutrition/Malnutrition Findings: Nutrition Notes Start: 03/31/22 17:52 Freq: Status: Active Protocol: Document 03/31/22 17:52 CM (Rec: 03/31/22 18:25 CM [id number]) Co-Sign 03/31/22 17:52 WW Nutrition Notes Need for Assessment generated from: MD Order Initial or Follow up Assessment Current Diagnosis Acute Kidney Injury,Diabetes, Sepsis,Hypertension, Respiratory Failure, Hyperlipidemia Other Pertinent Diagnosis OHS, Dementia, Cerebral Atherosclerosis, Cardiorenal syndrome Current Diet NPO Labs/Tests BUN 66 Cr 4.7 Pertinent Medications Lasix Height 6 ft 2 in Weight 128 kg [place] Body Weight (kg) 86.36 BMI 36.2 Intake Prior to Admission Good Weight change and time frame No 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 Weight Status Obese Subjective/Other Information RD consult for evaluate nutritional intake (now write/ manage TF) Pt intubated in critical care - swallowing impaired per physical assessment. Spoke w/ pt's who reported no prior wt loss or decreased appetite (other than day before admission). UBW reported 220-230lb for the past few years. Edema noted - may be reason for current weight (being diuresed) Recommend initiating enteral nutrition when medically appropriate. Abdomen round w/ BS+ per physical assessment. NGT terminates in fundus/body of stomach per KUB 03/31. Recommendations below. 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 Yes Is Patient Ambulatory and/or Out of Bed No REE-([facility]-confined to bed) 2519.172 Kcal/Kg value to use for calculation 14 Approximate Energy Requirements Using 1792 kcal/Kg Calculation Used for Recommendations Kcal/kg Additional Notes 11-14kcal/kg ABW; 1408- 1792kcal q day Protein: 0.8-1.2g/kg IBW; 69- 104g PRO q day Fluid: 30mL/kcal or per MD Nutrition Intervention Nutrition Support: When appropriate, recommend initiating Vital AF @ 25mL/hr and increasing by 10mL q 8hr to goal rate of 55mL/hr x 24hrs. Flush with 85mL q 4hr or per team. Kcal 1,584 Protein (gm) 99 Fluid (mL) 1,070 % RDI: 100%Kcal/100% AA Goal #1 Pt to intiate and tolerate enteral nutrition within 24 hours. Follow-Up By: 04/02/22 Additional Comments Monitor TF intitiation, tolerance, nutrition-related labs <DARWIN EPSTEIN - Last Filed: 04/01/22 19:00> Assessment and Plan Assessment and plan: I saw and evaluated the patient. I agree with the findings and the plan of care as documented in the Nurse Practitioner's~note, with the following corrections and additions. Hospitalist Physical - Constitutional Vitals: Temp Pulse Resp BP Pulse Ox 97.8 F 70 19 158/74 96 04/01/22 15:51 04/01/22 18:00 04/01/22 18:00 04/01/22 18:00 04/01/22 18:00 Results - Labs CBC & Chem 7: 04/01/22 04:00 04/01/22 04:00 Labs: Laboratory Last Values WBC 10.4 K/mm3 (4.5-11.0) 04/01/22 04:00 RBC 3.88 M/mm3 (3.65-5.03) 04/01/22 04:00 Hgb 11.2 gm/dl (11.8-15.2) L 04/01/22 04:00 Hct 33.8 % (35.5-45.6) L 04/01/22 04:00 MCV 87 fl (84-94) 04/01/22 04:00 MCH 29 pg (28-32) 04/01/22 04:00 MCHC 33 % (32-34) 04/01/22 04:00 RDW 19.5 % (13.2-15.2) H 04/01/22 04:00 Plt Count 117 K/mm3 (140-440) L 04/01/22 04:00 Lymph % (Auto) 11.5 % (13.4-35.0) L 03/31/22 03:34 [place] % (Auto) 10.4 % (0.0-7.3) H 03/31/22 03:34 Eos % (Auto) 0.6 % (0.0-4.3) 03/31/22 03:34 Baso % (Auto) 0.4 % (0.0-1.8) 03/31/22 03:34 Lymph # (Auto) 1.3 K/mm3 (1.2-5.4) 03/31/22 03:34 [place] # (Auto) 1.1 K/mm3 (0.0-0.8) H 03/31/22 03:34 Eos # (Auto) 0.1 K/mm3 (0.0-0.4) 03/31/22 03:34 Baso # (Auto) 0.0 K/mm3 (0.0-0.1) 03/31/22 03:34 Seg Neutrophils % 77.1 % (40.0-70.0) H 03/31/22 03:34 Seg Neutrophils # 8.5 K/mm3 (1.8-7.7) H 03/31/22 03:34 ABG pH 7.459 pH Units (7.350-7.450) H 04/01/22 03:45 ABG pCO2 39.8 mm Hg 04/01/22 03:45 ABG pO2 169.2 mm Hg (80.0-90.0) H 04/01/22 03:45 ABG HCO3 27.7 mmol/L (20.0-26.0) H 04/01/22 03:45 ABG O2 Saturation 99.1 % (95.0-99.0) H 04/01/22 03:45 ABG O2 Content 15.4 (0.0-44) 04/01/22 03:45 ABG Base Excess 3.6 mmol/L (-2.0-3.0) H 04/01/22 03:45 ABG Hemoglobin 11.0 gm/dl (14.0-18.0) L 04/01/22 03:45 ABG Carboxyhemoglobin 1.4 % (0.0-5.0) 04/01/22 03:45 ABG Methemoglobin 0.7 % (0.0-1.5) 04/01/22 03:45 Oxyhemoglobin 97.0 % (95.0-99.0) 04/01/22 03:45 FiO2 60 % 04/01/22 03:45 Sodium 147 mmol/L (137-145) H 04/01/22 04:00 Potassium 3.2 mmol/L (3.6-5.0) L 04/01/22 04:00 Chloride 105.6 mmol/L (98-107) 04/01/22 04:00 Carbon Dioxide 27 mmol/L (22-30) 04/01/22 04:00 Anion Gap 18 mmol/L 04/01/22 04:00 BUN 73 mg/dL (9-20) H 04/01/22 04:00 Creatinine 4.7 mg/dL (0.8-1.3) H 04/01/22 04:00 Estimated GFR 12 ml/min 04/01/22 04:00 BUN/Creatinine Ratio 16 % 04/01/22 04:00 Glucose 98 mg/dL (75-100) 04/01/22 04:00 POC Glucose 202 mg/dL (70-105) H 04/01/22 11:25 Lactic Acid 0.60 mmol/L (0.7-2.0) L 03/30/22 17:16 Calcium 8.3 mg/dL (8.4-10.2) L 04/01/22 04:00 Magnesium 2.10 mg/dL (1.7-2.3) 03/30/22 14:11 Total Bilirubin 0.70 mg/dL (0.1-1.2) 04/01/22 04:00 AST 21 units/L (5-40) 04/01/22 04:00 ALT 13 units/L (7-56) 04/01/22 04:00 Alkaline Phosphatase 93 units/L (35-129) 04/01/22 04:00 NT-Pro-B Natriuret Pep 1383 pg/mL (0-900) H 03/30/22 08:15 Total Protein 5.6 g/dL (6.3-8.2) L 04/01/22 04:00 Albumin 3.6 g/dL (3.9-5) L 04/01/22 04:00 Albumin/Globulin Ratio 1.8 % 04/01/22 04:00 TSH 3.000 mlU/mL (0.270-4.200) 03/30/22 14:11 Free T4 0.94 ng/dL (0.76-1.46) 03/30/22 14:11 PTH Intact 146.1 pg/mL (15-65) H 03/31/22 03:34 Urine Color Yellow (Yellow) 03/30/22 Unknown Urine Turbidity Slightly-cloudy (Clear) 03/30/22 Unknown Urine pH 5.0 (5.0-7.0) 03/30/22 Unknown Ur Specific [place] 1.014 (1.003-1.030) 03/30/22 Unknown Urine Protein 30 mg/dl mg/dL (Negative) 03/30/22 Unknown Urine Glucose (UA) Neg mg/dL (Negative) 03/30/22 Unknown Urine Ketones Neg mg/dL (Negative) 03/30/22 Unknown Urine Blood Neg (Negative) 03/30/22 Unknown Urine Nitrite Neg (Negative) 03/30/22 Unknown Urine Bilirubin Neg (Negative) 03/30/22 Unknown Urine Urobilinogen 2.0 mg/dL (<2.0) 03/30/22 Unknown Ur Leukocyte Esterase Tr (Negative) 03/30/22 Unknown Urine WBC (Auto) 4.0 /HPF (0.0-6.0) 03/30/22 Unknown Urine RBC (Auto) 2.0 /HPF (0.0-6.0) 03/30/22 Unknown U Epithel Cells (Auto) 2.0 /HPF (0-13.0) 03/30/22 Unknown Amorphous Crystals Few 03/30/22 Unknown Urine Mucus Few /HPF 03/30/22 Unknown Urine Creatinine 105.1 mg/dL (0.1-20.0) H 03/31/22 00:40 Urine Sodium 28 mmol/L 03/31/22 00:40 Blood Type O POSITIVE 03/30/22 14:12 Antibody Screen Negative 03/30/22 14:12 Microbiology: Microbiology 03/30/22 17:16 Peripheral/Venous Blood Culture - Preliminary NO GROWTH AFTER 48 HOURS 03/30/22 14:11 Peripheral/Venous Blood Culture - Preliminary NO GROWTH AFTER 48 HOURS 03/31/22 13:12 Tracheal Aspirate Sputum Culture - Preliminary Madrigal/IV: Voiding Method Indwelling Catheter Active Medications - Current Medications Current Medications: Generic Name Dose Route Start Last Admin Trade Name Freq PRN Reason Stop Dose Admin Acetaminophen 650 mg 03/30/22 13:41 04/01/22 00:33 Acetaminophen 325 Mg Tab PO 650 mg Q6H PRN Administration Pain, Mild (1-3) Albuterol 2.5 mg 03/30/22 13:39 Albuterol 2.5 Mg/3 Ml Nebu IH Q3HRT PRN Shortness Of Breath Famotidine 20 mg 03/31/22 22:00 04/01/22 09:51 Famotidine 20 Mg/2 Ml Inj IV 20 mg BID ELMER Administration Furosemide 40 mg 03/30/22 18:00 04/01/22 18:04 Furosemide 40 Mg/4 Ml Inj IV 40 mg 0600,1800 ELMER Administration Hydromorphone HCl 1 mg 03/31/22 11:21 04/01/22 06:00 Hydromorphone 1 Mg/1 Ml Inj IV 1 mg Q4H PRN Administration Pain , Severe (7-10) Hydrophilic Ointment 1 applic 03/31/22 11:19 Lip Therapy Vaseline TP Q2HR PRN Dry Lips Levofloxacin/Dextrose 750 mg in 150 mls @ 100 mls/hr 03/30/22 15:00 04/01/22 15:51 Levaquin 750mg/150ml IV Infused Q48H [facility] Infusion Protocol Propofol 1,000 mg in 100 mls @ 3.84 mls/hr 03/31/22 12:00 Diprivan 10 Mg/Ml IV TITR ELMER Protocol 5 MCG/KG/MIN Metoprolol Tartrate 25 mg 04/01/22 22:00 Metoprolol Tartrate 25 Mg Tab PO BID [facility] Multi-Ingred Cream/Lotion/Oil/Oint 1 applic 03/31/22 11:19 Mineral Oil/Petrolatum, White Ophth Oint 3.5 Gm OU Q4HR PRN Dry Eye(s) Nitroglycerin 0.4 mg 03/30/22 13:43 Nitroglycerin 0.4 Mg Tab Subl SL .Q5MIN PRN Chest Pain Potassium Chloride 40 meq 04/01/22 10:00 04/01/22 10:10 Potassium Chloride 20 Meq Packet FEEDTUBE 04/01/22 22:01 40 meq BID ELMER Administration Senna/Docusate Sodium 1 tab 03/31/22 22:00 04/01/22 09:51 Sennosides/Docusate Sodium 8.6/50 Mg Tab FEEDTUBE 1 tab BID ELMER Administration Sodium Chloride 10 ml 03/30/22 22:00 04/01/22 09:50 Sodium Chloride 0.9% 10 Ml Flush Syringe IV 10 ml BID ELMER Administration Sodium Chloride 10 ml 03/30/22 13:39 Sodium Chloride 0.9% 10 Ml Flush Syringe IV PRN PRN LINE FLUSH Nutrition/Malnutrition Assess - Dietary Evaluation Nutrition/Malnutrition Findings: Nutrition Notes Start: 03/31/22 17:52 Freq: Status: Active Protocol: Document 03/31/22 17:52 CM (Rec: 03/31/22 18:25 CM [id number]) Co-Sign 03/31/22 17:52 WW Nutrition Notes Need for Assessment generated from: MD Order Initial or Follow up Assessment Current Diagnosis Acute Kidney Injury,Diabetes, Sepsis,Hypertension, Respiratory Failure, Hyperlipidemia Other Pertinent Diagnosis OHS, Dementia, Cerebral Atherosclerosis, Cardiorenal syndrome Current Diet NPO Labs/Tests BUN 66 Cr 4.7 Pertinent Medications Lasix Height 6 ft 2 in Weight 128 kg [place] Body Weight (kg) 86.36 BMI 36.2 Intake Prior to Admission Good Weight change and time frame No 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 Weight Status Obese Subjective/Other Information RD consult for evaluate nutritional intake (now write/ manage TF) Pt intubated in critical care - swallowing impaired per physical assessment. Spoke w/ pt's who reported no prior wt loss or decreased appetite (other than day before admission). UBW reported 220-230lb for the past few years. Edema noted - may be reason for current weight (being diuresed) Recommend initiating enteral nutrition when medically appropriate. Abdomen round w/ BS+ per physical assessment. NGT terminates in fundus/body of stomach per KUB 03/31. Recommendations below. 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 Yes Is Patient Ambulatory and/or Out of Bed No REE-([facility]-confined to bed) 2519.172 Kcal/Kg value to use for calculation 14 Approximate Energy Requirements Using 1792 kcal/Kg Calculation Used for Recommendations Kcal/kg Additional Notes 11-14kcal/kg ABW; 1408- 1792kcal q day Protein: 0.8-1.2g/kg IBW; 69- 104g PRO q day Fluid: 30mL/kcal or per MD Nutrition Intervention Nutrition Support: When appropriate, recommend initiating Vital AF @ 25mL/hr and increasing by 10mL q 8hr to goal rate of 55mL/hr x 24hrs. Flush with 85mL q 4hr or per team. Kcal 1,584 Protein (gm) 99 Fluid (mL) 1,070 % RDI: 100%Kcal/100% AA Goal #1 Pt to intiate and tolerate enteral nutrition within 24 hours. Follow-Up By: 04/02/22 Additional Comments Monitor TF intitiation, tolerance, nutrition-related labs
--- NOTE | 2022-04-01 12:32 | Progress Note ---
Assessment and Plan 71 y/o male with encephalopathy, worsening renal failure, and what appears to be recurrence of acute hypercapnic respiratory failure even after wearing bipap all night. 04/01/22: Patient admits to having MARY ELLEN and being noncompliant with cpap. Has agreed to wear bipap nightly and PRN here. Ok with attempt at extubation today, however if re-intubated will need trach and this was explained to the patient. CXR still appears to be volume overloaded. Follow up renal and cards recs in regards to fluid management. Prognosis still is guarded. 1. Hypercapnea is likely not a primary lung issue but secondary to another major cause (heart failure, renal failure etc) Patient does have some chronic hypercapnea suspected given his elevated bicarb on his chemistry. ordered STat ABG. Pending results, given patients mental status, maybe more suited for intubation rather than prolonged times on bipap. Chart states no smoking and no prior history of lung disease. Is obese, could have OHS. Will stop sedatives and pain meds. 2. CV-elevate bnp with cardiomegaly. Concern for CHF, follow up echo. Did not respond very well to diuresis 3. Renal-worsening renal function with minimal urine output from diuretics. Question if higher doses of diuretic are needed? Follow up renal recs 4. Overall prognosis appears guarded. Will touch base with IMS and family pending results of ABG CCT 31 minutes. Subjective Date of service: 04/01/22 Principal diagnosis: MATILDA, Volume overload, acute respiratory failure, AMS Interval history: Awake and alert and appropriate. Wants tube out. Currently on PSV 04/07. No change in Cr but BUN did increase. Still making urine. Objective Vital Signs - 12hr 04/01/22 04/01/22 04/01/22 01:00 02:00 03:00 Temperature Pulse Rate 69 64 62 Pulse Rate [ From Monitor] Respiratory 26 H 26 H 26 H Rate Blood Pressure 141/77 141/75 140/70 O2 Sat by Pulse 100 100 100 Oximetry 04/01/22 04/01/22 04/01/22 03:19 04:00 04:01 Temperature 99.5 F Pulse Rate 65 71 Pulse Rate [ 64 From Monitor] Respiratory 26 H 20 Rate Blood Pressure 153/69 O2 Sat by Pulse 98 100 Oximetry 04/01/22 04/01/22 04/01/22 04:33 05:00 06:00 Temperature Pulse Rate 66 67 Pulse Rate [ From Monitor] Respiratory 26 H 26 H Rate Blood Pressure 153/69 136/62 O2 Sat by Pulse 100 100 Oximetry 04/01/22 04/01/22 04/01/22 06:01 07:00 07:27 Temperature 98.5 F Pulse Rate 66 63 61 Pulse Rate [ From Monitor] Respiratory 26 H 25 H Rate Blood Pressure 150/69 132/70 O2 Sat by Pulse 100 100 Oximetry 04/01/22 04/01/22 04/01/22 07:28 07:49 07:54 Temperature Pulse Rate 60 60 Pulse Rate [ 61 From Monitor] Respiratory 26 H Rate Blood Pressure 132/70 132/70 O2 Sat by Pulse 98 100 100 Oximetry 04/01/22 04/01/22 04/01/22 08:00 08:03 09:00 Temperature Pulse Rate 65 67 67 Pulse Rate [ From Monitor] Respiratory 26 H 26 H 22 Rate Blood Pressure 163/85 132/70 O2 Sat by Pulse 100 99 100 Oximetry 04/01/22 04/01/22 04/01/22 09:50 10:00 11:00 Temperature Pulse Rate 64 63 71 Pulse Rate [ From Monitor] Respiratory 26 H 13 Rate Blood Pressure 153/87 153/87 164/84 O2 Sat by Pulse 100 99 Oximetry 04/01/22 04/01/22 04/01/22 11:28 11:31 11:43 Temperature 97.7 F Pulse Rate 69 Pulse Rate [ 72 From Monitor] Respiratory 16 Rate Blood Pressure O2 Sat by Pulse 98 Oximetry 04/01/22 04/01/22 12:04 12:10 Temperature Pulse Rate 71 67 Pulse Rate [ From Monitor] Respiratory 11 L Rate Blood Pressure 164/88 164/88 O2 Sat by Pulse 98 99 Oximetry Constitutional: appears uncomfortable, other (obtunded) Eyes: non-icteric ENT: other (full face mask presently on) Neck: supple Effort: normal Ascultation: Bilateral: rales Percussion: Bilateral: not dull Cardiovascular: regular rate and rhythm Gastrointestinal: soft Integumentary: other (tattoos on left arm) Neurologic: unable to assess CBC and BMP: 04/01/22 04:00 04/01/22 04:00 ABG, PT/INR, D-dimer: ABG ABG pH 7.459 pH Units (7.350-7.450) H 04/01/22 03:45 ABG pCO2 39.8 mm Hg 04/01/22 03:45 ABG pO2 169.2 mm Hg (80.0-90.0) H 04/01/22 03:45 ABG O2 Saturation 99.1 % (95.0-99.0) H 04/01/22 03:45 Abnormal lab findings: Abnormal Labs 03/30/22 03/30/22 03/30/22 08:15 08:15 17:00 WBC 14.4 H RBC 3.60 L Hgb 10.5 L Hct 32.1 L RDW 19.8 H Plt Count Lymph % (Auto) Blackford % (Auto) 8.2 H [place] # (Auto) 1.2 H Seg Neutrophils % Seg Neutrophils # 10.1 H ABG pH 7.118 L* ABG pO2 ABG HCO3 34.2 H ABG O2 Saturation ABG Base Excess 5.0 H ABG Hemoglobin Oxyhemoglobin Sodium Potassium BUN 55 H Creatinine 4.2 H Glucose 132 H POC Glucose Lactic Acid Calcium 7.9 L NT-Pro-B Natriuret Pep 1383 H Total Protein 6.1 L Albumin PTH Intact Urine Creatinine 03/30/22 03/30/22 03/30/22 17:16 17:43 19:50 WBC RBC Hgb Hct RDW Plt Count Lymph % (Auto) [place] % (Auto) [place] # (Auto) Seg Neutrophils % Seg Neutrophils # ABG pH 7.099 L* ABG pO2 ABG HCO3 32.2 H ABG O2 Saturation ABG Base Excess ABG Hemoglobin 11.6 L Oxyhemoglobin 92.5 L Sodium Potassium BUN Creatinine Glucose POC Glucose 147 H Lactic Acid 0.60 L Calcium NT-Pro-B Natriuret Pep Total Protein Albumin PTH Intact Urine Creatinine 03/31/22 03/31/22 03/31/22 00:40 03:34 03:34 WBC RBC Hgb Hct RDW 19.7 H Plt Count 132 L Lymph % (Auto) 11.5 L [place] % (Auto) 10.4 H [place] # (Auto) 1.1 H Seg Neutrophils % 77.1 H Seg Neutrophils # 8.5 H ABG pH ABG pO2 ABG HCO3 ABG O2 Saturation ABG Base Excess ABG Hemoglobin Oxyhemoglobin Sodium Potassium BUN 66 H Creatinine 4.7 H Glucose 112 H POC Glucose Lactic Acid Calcium 7.8 L NT-Pro-B Natriuret Pep Total Protein Albumin PTH Intact Urine Creatinine 105.1 H 03/31/22 03/31/22 03/31/22 03:34 05:57 10:15 WBC RBC Hgb Hct RDW Plt Count Lymph % (Auto) [place] % (Auto) [place] # (Auto) Seg Neutrophils % Seg Neutrophils # ABG pH 7.315 L 7.155 L* ABG pO2 103.4 H ABG HCO3 28.6 H 32.6 H ABG O2 Saturation ABG Base Excess ABG Hemoglobin 11.8 L 12.1 L Oxyhemoglobin 94.1 L 94.1 L Sodium Potassium BUN Creatinine Glucose POC Glucose Lactic Acid Calcium NT-Pro-B Natriuret Pep Total Protein Albumin PTH Intact 146.1 H Urine Creatinine 03/31/22 04/01/22 04/01/22 13:12 00:06 03:45 WBC RBC Hgb Hct RDW Plt Count Lymph % (Auto) [place] % (Auto) [place] # (Auto) Seg Neutrophils % Seg Neutrophils # ABG pH 7.459 H ABG pO2 76.8 L 169.2 H ABG HCO3 27.6 H 27.7 H ABG O2 Saturation 99.1 H ABG Base Excess 3.6 H ABG Hemoglobin 10.6 L 11.0 L Oxyhemoglobin 94.6 L Sodium Potassium BUN Creatinine Glucose POC Glucose 107 H Lactic Acid Calcium NT-Pro-B Natriuret Pep Total Protein Albumin PTH Intact Urine Creatinine 04/01/22 04/01/22 04/01/22 04:00 04:00 05:17 WBC RBC Hgb 11.2 L Hct 33.8 L RDW 19.5 H Plt Count 117 L Lymph % (Auto) [place] % (Auto) [place] # (Auto) Seg Neutrophils % Seg Neutrophils # ABG pH ABG pO2 ABG HCO3 ABG O2 Saturation ABG Base Excess ABG Hemoglobin Oxyhemoglobin Sodium 147 H Potassium 3.2 L BUN 73 H Creatinine 4.7 H Glucose POC Glucose 141 H Lactic Acid Calcium 8.3 L NT-Pro-B Natriuret Pep Total Protein 5.6 L Albumin 3.6 L PTH Intact Urine Creatinine
--- NOTE | 2022-04-01 13:43 | Progress Note ---
Assessment and Plan Patient is 71-year-old male with past medical history of CKD, diabetes, hypertension, hyperlipidemia, BPH, chronic back pain presented to the ED with several complaints such as altered mental status, bilateral lower extremity edema, and urinary retention x1 day. AMS Acute respiratory failure-pulmonology following MATILDA on CKD?-Nephrology following CHF Volume overload Hypertension Diabetes Hyperlipidemia BPH Obesity Chronic back pain Echo 03/30/2022-EF 50 to 55%. Mild diastolic dysfunction is present impaired relaxation pattern. Right ventricular systolic function is normal. no pericardial effusion Plan: Telemetry reviewed patient appears to be sinus rhythm 60s-70s Due to renal function will defer volume management to nephrology. Patient currently on Lasix 40 mg IV twice daily Strict I&O's, daily weights, and repeat BMP in the a.m. with close monitoring of renal function Will convert to metoprolol 25 mg p.o. twice daily No JHONATAN or ARB due to renal function Echo results noted above Will see as needed over the weekend Patient seen in conjunction with Dr. Moody who agrees with assessment and plan of care 30 minutes of critical care time spent in care and coordination of patient - Patient Problems (1) HTN (hypertension) Current Visit: Yes Status: Acute (2) Obesity Current Visit: Yes Status: Acute (3) Acute respiratory failure Current Visit: Yes Status: Acute (4) Acute on chronic renal failure Current Visit: Yes Status: Acute (5) CHF (congestive heart failure) Current Visit: Yes Status: Acute (6) Hypoxia Current Visit: Yes Status: Acute (7) Urinary retention Current Visit: Yes Status: Acute Subjective Date of service: 04/01/22 Principal diagnosis: MATILDA, Volume overload, acute respiratory failure, AMS Interval history: Patient remains intubated but is awake and alert this am Sinus 70s to 80s on monitor Objective Vital Signs Temp Pulse Pulse Resp BP Pulse Ox 04/01/22 12:10 67 11 L 164/88 99 04/01/22 12:04 71 164/88 98 04/01/22 11:43 97.7 F 04/01/22 11:31 69 04/01/22 11:28 72 16 98 04/01/22 11:00 71 13 164/84 99 04/01/22 10:00 63 26 H 153/87 100 04/01/22 09:50 64 153/87 04/01/22 09:00 67 22 132/70 100 04/01/22 08:03 67 26 H 163/85 99 04/01/22 08:00 65 26 H 100 04/01/22 07:54 60 132/70 100 04/01/22 07:49 60 132/70 100 04/01/22 07:28 61 26 H 98 04/01/22 07:27 98.5 F 61 04/01/22 07:00 63 25 H 132/70 100 04/01/22 06:01 66 26 H 150/69 100 04/01/22 06:00 26 H 04/01/22 05:00 67 26 H 136/62 100 04/01/22 04:33 66 153/69 100 04/01/22 04:01 71 20 153/69 100 04/01/22 04:00 65 64 26 H 98 04/01/22 03:19 99.5 F 04/01/22 03:00 62 26 H 140/70 100 04/01/22 02:00 64 26 H 141/75 100 04/01/22 01:00 69 26 H 141/77 100 04/01/22 00:00 101.3 F H 68 64 26 H 149/77 03/31/22 23:59 70 150/79 03/31/22 23:00 73 26 H 150/79 03/31/22 22:13 74 26 H 151/78 03/31/22 22:01 78 26 H 151/78 03/31/22 21:46 26 H 03/31/22 21:00 78 22 143/77 03/31/22 20:00 101.7 F H 75 74 26 H 155/78 98 03/31/22 19:18 75 153/76 03/31/22 19:00 78 19 164/83 03/31/22 18:00 75 27 H 141/75 03/31/22 17:30 76 152/74 03/31/22 17:05 74 26 H 98 03/31/22 17:00 73 25 H 148/76 03/31/22 16:44 100.8 F H 03/31/22 16:00 75 26 H 152/72 03/31/22 15:00 79 26 H 158/76 03/31/22 14:48 99.4 F 03/31/22 14:00 80 26 H 147/72 100 - Physical Examination General: No Apparent Distress, Other (Intubated) HEENT: Positive: Mucus Membranes Moist Neck: Positive: trachea midline Cardiac: Positive: Reg Rate and Rhythm Lungs: Positive: Ventilated Respirations Neuro: Positive: Grossly Intact Abdomen: Positive: Soft Skin: Negative: Rash, Suspicious Lesions, Ulceration Extremities: Present: upper extr. pulses, edema - Labs and Meds Cardiac Enzymes 04/01/22 Range/Units 04:00 AST 21 (5-40) units/L CBC 04/01/22 Range/Units 04:00 WBC 10.4 (4.5-11.0) K/mm3 RBC 3.88 (3.65-5.03) M/mm3 Hgb 11.2 L (11.8-15.2) gm/dl Hct 33.8 L (35.5-45.6) % Plt Count 117 L (140-440) K/mm3 Comprehensive Metabolic Panel 04/01/22 Range/Units 04:00 Sodium 147 H (137-145) mmol/L Potassium 3.2 L (3.6-5.0) mmol/L Chloride 105.6 (98-107) mmol/L Carbon Dioxide 27 (22-30) mmol/L BUN 73 H (9-20) mg/dL Creatinine 4.7 H (0.8-1.3) mg/dL Glucose 98 (75-100) mg/dL Calcium 8.3 L (8.4-10.2) mg/dL AST 21 (5-40) units/L ALT 13 (7-56) units/L Alkaline Phosphatase 93 (35-129) units/L Total Protein 5.6 L (6.3-8.2) g/dL Albumin 3.6 L (3.9-5) g/dL - Imaging and Cardiology EKG: report reviewed, image reviewed Echo: report reviewed - Telemetry EKG Rhythm: Sinus Rhythm - EKG Sinus rhythms and dysrhythmias: sinus rhythm
[2022-04-01] MEDS ORDERED: DEXTROSE 50% IN WATER (25GM) 50 ML SYRINGE IV PRN (20:47)
[2022-04-01 21:33] VITALS: BP 162/75
[2022-04-01] MEDS ORDERED: METOPROLOL TARTRATE 25 MG TAB PO SCH (22:00)
[2022-04-01] MEDS ORDERED: INSULIN REGULAR, HUMAN 100 UNITS/1 ML SUB-Q SCH (22:00)
== END 2022-04-01 23:19 | disposition home or self-care (01) | DRG 871 ==
LOC: ED 07:16 → IMCU 13:39 → CC1 03-31 11:07
PROVIDERS: ADMIT Internal Medicine; ATTEND Internal Medicine
PROC: 5A1935Z Respiratory Ventilation, Less than 24 Consecutive Hours (ICD-10-PCS; principal; 2022-03-31)
PROC: 0BH17EZ Insertion of Endotracheal Airway into Trachea, Via Natural or Artificial Opening (ICD-10-PCS; 2022-03-31)
DX: A41.9 Sepsis, unspecified organism (principal); I50.33 Acute on chronic diastolic (congestive) heart failure; J96.02 Acute respiratory failure with hypercapnia; J18.9 Pneumonia, unspecified organism; N17.0 Acute kidney failure with tubular necrosis; J96.01 Acute respiratory failure with hypoxia; E66.2 Morbid (severe) obesity with alveolar hypoventilation; I13.0 Hypertensive heart and chronic kidney disease with heart failure and stage 1 through stage 4 chronic kidney disease, or unspecified chronic kidney disease; G93.40 Encephalopathy, unspecified; R33.9 Retention of urine, unspecified; N18.9 Chronic kidney disease, unspecified; D69.6 Thrombocytopenia, unspecified; M10.9 Gout, unspecified; N40.0 Benign prostatic hyperplasia without lower urinary tract symptoms; E03.9 Hypothyroidism, unspecified; E78.5 Hyperlipidemia, unspecified; E11.22 Type 2 diabetes mellitus with diabetic chronic kidney disease; D64.9 Anemia, unspecified; F01.50 Vascular dementia, unspecified severity, without behavioral disturbance, psychotic disturbance, mood disturbance, and anxiety; G89.4 Chronic pain syndrome; M19.90 Unspecified osteoarthritis, unspecified site; I67.2 Cerebral atherosclerosis; Z87.891 Personal history of nicotine dependence; Z86.73 Personal history of transient ischemic attack (TIA), and cerebral infarction without residual deficits; Z82.49 Family history of ischemic heart disease and other diseases of the circulatory system; Z83.3 Family history of diabetes mellitus; Z68.35 Body mass index [BMI] 35.0-35.9, adult
CPT/HCPCS: 31500; 36415; 36600; 70450; 71045; 74018; 76770; 80053; 81001; 82140; 82570; 82803; 82962; 83735; 83880; 83970; 84300; 84439; 84443; 85025; 85027; 86850; 86900; 86901; 87040; 87070; 87205; 93005; 93306; 94002; 94003; 94660; 94760; 99285; G0378; J3490; Q9967; C8929; J1170; J1815; J1940; J1956